=== PATIENT | female | born 1955 | race Caucasian/White ===

== ENCOUNTER → 2018-01-21 | Outpatient (REF) | payer MEDICAID ==
[2018-01-21 12:16] LABS: BASO # 0.1 10^3/uL (0.0-0.2); BASO % 0.5 % (0.0-1.0); EOS # 0.4 10^3/uL (0.0-0.50); EOS % 3.4 % (0.0-3.0); HEMATOCRIT 41.4 % (36.0-47.0); HEMOGLOBIN 13.4 g/dl (12.0-15.5); IMMATURE GRANULOCYTE % 0.4 % (0-3.0); LYMPH # 3.5 10^3/uL (1.5-4.5); LYMPH % 28.7 % (24.0-44.0); MEAN CORPUSCULAR HEMOGLOBIN 29.7 pg (27.0-33.0); MEAN CORPUSCULAR HGB CONC 32.4 g/dl (32.0-36.5); MEAN CORPUSCULAR VOLUME 91.8 fl (80.0-96.0); MONO % 7.8 % (0.0-5.0); NEUTROPHILS # 7.3 10^3/uL (1.8-7.7); NEUTROPHILS % 59.2 % (36.0-66.0); PLATELET COUNT, AUTOMATED 274 10^3/uL (150-450); RED BLOOD COUNT 4.51 10^6/uL (4.00-5.40); RED CELL DISTRIBUTION WIDTH 15.1 % (11.5-14.5); WHITE BLOOD COUNT 12.2 10^3/uL (4.0-10.0)
[2018-01-21 12:56] LABS: ALBUMIN 3.6 GM/DL (3.2-5.2); ALBUMIN/GLOBULIN RATIO 0.95 (1.00-1.93); ALKALINE PHOSPHATASE 73 U/L (45-117); ALT/SGPT 25 U/L (12-78); ANION GAP 5 MEQ/L (8-16); AST/SGOT 18 U/L (7-37); BILIRUBIN,TOTAL 0.6 MG/DL (0.2-1.0); BLOOD UREA NITROGEN 15 MG/DL (7-18); C REACTIVE PROTEIN QUANTITATIV 1.41 MG/DL (0.00-0.30); CALCIUM LEVEL 9.1 MG/DL (8.8-10.2); CARBON DIOXIDE LEVEL 29 MEQ/L (21-32); CHLORIDE LEVEL 107 MEQ/L (98-107); CHOLESTEROL LEVEL 160 MG/DL (<200); CHOLESTEROL RISK RATIO 2.909 (<5); CREATININE FOR GFR 0.85 MG/DL (0.55-1.30); FREE T4 1.33 NG/DL (0.76-1.46); GLOMERULAR FILTRATION RATE > 60.0 (>45); GLUCOSE, FASTING 94 MG/DL (70-100); HDL CHOLESTEROL 55 MG/DL (>40); LDL CHOLESTEROL 77.6 MG/DL (<100); NON-HDL-C 105 MG/DL; POTASSIUM SERUM 4.5 MEQ/L (3.5-5.1); SODIUM LEVEL 141 MEQ/L (136-145); TOTAL PROTEIN 7.4 GM/DL (6.4-8.2); TRIGLYCERIDES LEVEL 137 MG/DL (<150); URIC ACID 7.7 MG/DL (2.6-6.0)
== END ==
LOC: M SFHCPLAZ 10:30
DX: I10 Essential (primary) hypertension (principal); E03.9 Hypothyroidism, unspecified; Z13.220 Encounter for screening for lipoid disorders; M1A.27 Drug-induced chronic gout, ankle and foot

== ENCOUNTER → 2018-02-09 | Outpatient (CLI) | payer OTHER | LOC: M SLEEP HO 10:50 | DX: G47.30 Sleep apnea, unspecified (principal) | CPT/HCPCS: G0399 ==

== ENCOUNTER → 2018-03-11 | Outpatient (CLI) | payer OTHER | LOC: M SMT 10:01 | DX: M17.31 Unilateral post-traumatic osteoarthritis, right knee (principal) | CPT/HCPCS: 73564 ==

== ENCOUNTER 2018-03-18 18:34 | Emergency (ER) | payer OTHER ==
[2018-03-18] MEDS: METHOCARBAMOL 500 MG TAB PO (20:07)
== END 2018-03-18 20:27 | disposition home or self-care (01) ==
LOC: M ED 18:34
DX: S16.1XXA Strain of muscle, fascia and tendon at neck level, initial encounter (principal); M62.830 Muscle spasm of back; M17.11 Unilateral primary osteoarthritis, right knee; X50.1XXA Overexertion from prolonged static or awkward postures, initial encounter; Y92.098 Other place in other non-institutional residence as the place of occurrence of the external cause; I10 Essential (primary) hypertension; Z88.1 Allergy status to other antibiotic agents; Z88.8 Allergy status to other drugs, medicaments and biological substances; Z79.899 Other long term (current) drug therapy
CPT/HCPCS: 99284

== ENCOUNTER → 2018-03-24 | Outpatient (REF) | LOC: M SMT 14:27 | DX: Z00.00 Encounter for general adult medical examination without abnormal findings (principal) ==

== ENCOUNTER 2018-06-23 15:53 | Emergency (ER) | payer OTHER ==
[2018-06-23 16:48] LABS: VENOUS BASE EXCESS 3.5 (-2.0-2.0); VENOUS HCO3 28.7 MEQ/L (23.0-27.0); VENOUS O2 SATURATION 90.1 % (60.0-80.0); VENOUS PARTIAL PRESSURE CO2 45.7 mmHg (38.0-50.0); VENOUS PH 7.416 UNITS (7.330-7.430); VENOUS STANDARD HCO3 27.4 MEQ/L; VENOUS TOTAL CO2 30.1 MEQ/L (24.0-28.0)
[2018-06-23 16:51] LABS: BASO # 0.1 10^3/uL (0.0-0.2); BASO % 0.5 % (0.0-1.0); EOS # 0.3 10^3/uL (0.0-0.50); EOS % 2.6 % (0.0-3.0); HEMATOCRIT 40.7 % (36.0-47.0); HEMOGLOBIN 13.5 g/dl (12.0-15.5); IMMATURE GRANULOCYTE % 0.7 % (0-3.0); LYMPH # 3.5 10^3/uL (1.5-4.5); LYMPH % 28.1 % (24.0-44.0); MEAN CORPUSCULAR HEMOGLOBIN 30.4 pg (27.0-33.0); MEAN CORPUSCULAR HGB CONC 33.2 g/dl (32.0-36.5); MEAN CORPUSCULAR VOLUME 91.7 fl (80.0-96.0); NEUTROPHILS # 7.5 10^3/uL (1.8-7.7); NEUTROPHILS % 60.1 % (36.0-66.0); PLATELET COUNT, AUTOMATED 331 10^3/uL (150-450); RED BLOOD COUNT 4.44 10^6/uL (4.00-5.40); RED CELL DISTRIBUTION WIDTH 14.1 % (11.5-14.5); WHITE BLOOD COUNT 12.5 10^3/uL (4.0-10.0)
[2018-06-23 17:01] LABS: INR 0.95; PROTHROMBIN TIME 12.8 SECONDS (12.1-14.4)
[2018-06-23 17:13] LABS: LACTIC ACID SEPSIS PROTOCOL 1.7 MMOL/L (0.4-2.0)
[2018-06-23 17:21] LABS: ALBUMIN 3.6 GM/DL (3.2-5.2); ALBUMIN/GLOBULIN RATIO 1.03 (1.00-1.93); ALKALINE PHOSPHATASE 72 U/L (45-117); ALT/SGPT 25 U/L (12-78); ANION GAP 8 MEQ/L (8-16); AST/SGOT 17 U/L (7-37); BILIRUBIN,DIRECT 0.1 MG/DL (0.0-0.2); BILIRUBIN,TOTAL 0.5 MG/DL (0.2-1.0); BLOOD UREA NITROGEN 13 MG/DL (7-18); CALCIUM LEVEL 9.2 MG/DL (8.8-10.2); CARBON DIOXIDE LEVEL 30 MEQ/L (21-32); CHLORIDE LEVEL 101 MEQ/L (98-107); CK-MB VALUE MASS < 1.0 NG/ML (<3.6); CPK CREATINE PHOSPHOKINASE 35 U/L (26-192); CREATININE FOR GFR 1.07 MG/DL (0.55-1.30); GLOMERULAR FILTRATION RATE 55.3 (>45); GLUCOSE, FASTING 112 MG/DL (70-100); LIPASE 128 U/L (73-393); MB/CK RELATIVE INDEX 2.86 (< OR =4); NT-PRO BNP 32 PG/ML (<125); POTASSIUM SERUM 3.3 MEQ/L (3.5-5.1); SODIUM LEVEL 139 MEQ/L (136-145); TOTAL PROTEIN 7.1 GM/DL (6.4-8.2); TROPONIN I < 0.02 NG/ML (< 0.10)
[2018-06-23] MEDS ORDERED: ISOVUE-370 76% 100ML VIAL (Q9967) As Ordered (17:38)
[2018-06-23] MEDS: OMEPRAZOLE 20 MG CAP PO (18:38)
== END 2018-06-23 19:33 | disposition home or self-care (01) ==
LOC: M ED 15:53
DX: R60.0 Localized edema (principal); R94.31 Abnormal electrocardiogram [ECG] [EKG]; I10 Essential (primary) hypertension; J45.909 Unspecified asthma, uncomplicated; K21.9 Gastro-esophageal reflux disease without esophagitis; E07.9 Disorder of thyroid, unspecified; Z88.1 Allergy status to other antibiotic agents; Z88.8 Allergy status to other drugs, medicaments and biological substances
CPT/HCPCS: Q9967

== ENCOUNTER → 2018-07-12 | Outpatient (CLI) | payer OTHER | LOC: M LRY 12:27 | DX: J45.21 Mild intermittent asthma with (acute) exacerbation (principal) | CPT/HCPCS: 71046 ==

== ENCOUNTER 2018-07-20 21:00 | Emergency (ER) | payer OTHER ==
[2018-07-20] MEDS: IPRATROPIUM 0.5MG/ALBUTEROL 2.5MG INH SOL UD 3ML (DUONEB)(J7620) NEB (21:57)
[2018-07-20 22:09] LABS: BASO # 0.1 10^3/uL (0.0-0.2); BASO % 0.7 % (0.0-1.0); EOS # 0.6 10^3/uL (0.0-0.50); EOS % 4.1 % (0.0-3.0); HEMOGLOBIN 13.7 g/dl (12.0-15.5); IMMATURE GRANULOCYTE % 0.8 % (0-3.0); LYMPH # 4.4 10^3/uL (1.5-4.5); LYMPH % 29.8 % (24.0-44.0); MEAN CORPUSCULAR HEMOGLOBIN 30.6 pg (27.0-33.0); MEAN CORPUSCULAR HGB CONC 33.4 g/dl (32.0-36.5); MEAN CORPUSCULAR VOLUME 91.7 fl (80.0-96.0); MONO # 1.1 10^3/uL (0.0-0.8); MONO % 7.7 % (0.0-5.0); NEUTROPHILS # 8.4 10^3/uL (1.8-7.7); NEUTROPHILS % 56.9 % (36.0-66.0); PLATELET COUNT, AUTOMATED 293 10^3/uL (150-450); RED BLOOD COUNT 4.47 10^6/uL (4.00-5.40); RED CELL DISTRIBUTION WIDTH 14.2 % (11.5-14.5); WHITE BLOOD COUNT 14.7 10^3/uL (4.0-10.0)
[2018-07-20 22:24] LABS: ANION GAP 7 MEQ/L (8-16); BLOOD UREA NITROGEN 15 MG/DL (7-18); CALCIUM LEVEL 8.4 MG/DL (8.8-10.2); CARBON DIOXIDE LEVEL 31 MEQ/L (21-32); CHLORIDE LEVEL 104 MEQ/L (98-107); CREATININE FOR GFR 1.13 MG/DL (0.55-1.30); GLOMERULAR FILTRATION RATE 51.9 (>45); GLUCOSE, FASTING 132 MG/DL (70-100); POTASSIUM SERUM 3.7 MEQ/L (3.5-5.1); SODIUM LEVEL 142 MEQ/L (136-145)
[2018-07-20] MEDS: MOXIFLOXACIN 400 MG TAB PO (22:42)
[2018-07-20] MEDS: predniSONE 20 MG TAB PO (22:44)
== END 2018-07-20 23:32 | disposition home or self-care (01) ==
LOC: M ED 21:00
DX: J40 Bronchitis, not specified as acute or chronic (principal); J45.909 Unspecified asthma, uncomplicated; I10 Essential (primary) hypertension; F17.210 Nicotine dependence, cigarettes, uncomplicated
CPT/HCPCS: 71046

== ENCOUNTER 2018-12-03 09:11 | Day surgery (SDC) | payer OTHER ==
[~2018-12-03] VITALS: Ht 165.1 cm; Wt 138.3 kg
[~2018-12-03 09:11] MED LIST: ALLO100T; AMLO10TA5; AUGM875T28 PO; AVEL1TAB3 PO; CHLO125TA; DOXY100C37 PO; FAMO40TA3; IPRATROPIUM/; LEVO88TA3; LOSA50TA88; MAPA500T2; PROAAER10; ROBA500T PO; SERT-138; TRAM50TA2; VENTAER
[2018-12-03] MEDS ORDERED: PROPOFOL 200 MG/20 ML VIAL As Ordered ONE ×2 (09:55→11:46)
[2018-12-03] MEDS ORDERED: NS 1,000 ML IV ONE (10:00)
[2018-12-03] MEDS ORDERED: LIDOCAINE 2% INJ 100 MG/5 ML SDV (FOR ANES.) As Ordered ONE (10:01)
[2018-12-03] MEDS ORDERED: fentaNYL 100 MCG/2 ML INJECTION (J3010) As Ordered ONE (11:06)
[2018-12-03 12:17] VITALS: BP 146/74
--- NOTE | 2018-12-03 12:40 | ROOR ---
Patient Name: Randee Post Procedure Date: 12/03/2018 11:03 AM Date of : 1955 Age: 63 Room: [facility] Gender: Female Note Status: Finalized Procedure: Upper GI endoscopy Indications: Heartburn Providers: Edward Goel MD Referring MD: Karen PIERRE Requesting Provider: Medicines: Monitored Anesthesia Care Complications: No immediate complications. Procedure: Pre-Anesthesia Assessment: - Prior to the procedure, a History and Physical was performed, and patient medications and allergies were reviewed. The patient is competent. The risks and benefits of the procedure and the sedation options and risks were discussed with the patient. All questions were answered and informed consent was obtained. Patient identification and proposed procedure were verified by the physician, the nurse and the anesthesiologist in the procedure room. Mental Status Examination: alert and oriented. Airway Examination: normal oropharyngeal airway and neck mobility. Respiratory Examination: clear to auscultation. CV Examination: normal. Prophylactic Antibiotics: The patient does not require prophylactic antibiotics. Prior Anticoagulants: The patient has taken no previous anticoagulant or antiplatelet agents. ASA Grade Assessment: III - A patient with severe systemic disease. After reviewing the risks and benefits, the patient was deemed in satisfactory condition to undergo the procedure. The anesthesia plan was to use monitored anesthesia care (MAC). Immediately prior to administration of medications, the patient was re-assessed for adequacy to receive sedatives. The heart rate, respiratory rate, oxygen saturations, blood pressure, adequacy of pulmonary ventilation, and response to care were monitored throughout the procedure. The physical status of the patient was re-assessed after the procedure. The Endoscope was introduced through the mouth, and advanced to the second part of duodenum. The upper GI endoscopy was accomplished without difficulty. The patient tolerated the procedure well. Findings: Mucosal changes including ringed esophagus and longitudinal markings were found in the middle third of the esophagus and in the lower third of the esophagus. Biopsies were obtained from the proximal and distal esophagus with cold forceps for histology of suspected eosinophilic esophagitis. Verification of patient identification for the specimen was done by the physician and nurse using the patient's name, date and medical record number. Estimated blood loss was minimal. The Z-line was regular and was found 40 cm from the incisors. Patchy minimal inflammation characterized by erythema and granularity was found in the gastric body and in the gastric antrum. Biopsies were taken with a cold forceps for Helicobacter pylori testing. The duodenal bulb and second portion of the duodenum were normal. Impression: - Esophageal mucosal changes suspicious for eosinophilic esophagitis. Biopsied. - Z-line regular, 40 cm from the incisors. - Gastritis. Biopsied. - Normal duodenal bulb and second portion of the duodenum. Recommendation: - Patient has a contact number available for emergencies. The signs and symptoms of potential delayed complications were discussed with the patient. Return to normal activities tomorrow. Written discharge instructions were provided to the patient. - Resume previous diet. - Continue present medications. - Await pathology results. - Follow an antireflux regimen. - Based on the biopsy results you will receive a phone call from GI clinic in 2-3 weeks to review the pathology results AND/OR your results will be faxed to your Primary care physician. - Return to primary care physician. Edward Goel MD Edward Goel MD 12/03/2018 12:39:47 PM Electronically signed by Edward Goel MD Number of Addenda: 0 Note Initiated On: 12/03/2018 11:03 AM Estimated Blood Loss: Estimated blood loss was minimal.
--- NOTE | 2018-12-03 12:44 | ROOR ---
Patient Name: Randee Post Procedure Date: 12/03/2018 11:03 AM Date of : 1955 Age: 63 Room: [facility] Gender: Female Note Status: Finalized Procedure: Colonoscopy Indications: Screening for colorectal malignant neoplasm Providers: Edward Goel MD Referring MD: Karen PIERRE Requesting Provider: Medicines: Monitored Anesthesia Care Complications: No immediate complications. Procedure: Pre-Anesthesia Assessment: - Prior to the procedure, a History and Physical was performed, and patient medications and allergies were reviewed. The patient is competent. The risks and benefits of the procedure and the sedation options and risks were discussed with the patient. All questions were answered and informed consent was obtained. Patient identification and proposed procedure were verified by the physician, the nurse and the anesthesiologist in the procedure room. Mental Status Examination: alert and oriented. Airway Examination: normal oropharyngeal airway and neck mobility. Respiratory Examination: clear to auscultation. CV Examination: normal. Prophylactic Antibiotics: The patient does not require prophylactic antibiotics. Prior Anticoagulants: The patient has taken no previous anticoagulant or antiplatelet agents. ASA Grade Assessment: III - A patient with severe systemic disease. After reviewing the risks and benefits, the patient was deemed in satisfactory condition to undergo the procedure. The anesthesia plan was to use monitored anesthesia care (MAC). Immediately prior to administration of medications, the patient was re-assessed for adequacy to receive sedatives. The heart rate, respiratory rate, oxygen saturations, blood pressure, adequacy of pulmonary ventilation, and response to care were monitored throughout the procedure. The physical status of the patient was re-assessed after the procedure. The Colonoscope was introduced through the anus and advanced to the terminal ileum, with identification of the appendiceal orifice and IC valve. The colonoscopy was performed without difficulty. The patient tolerated the procedure well. The quality of the bowel preparation was good. The terminal ileum, ileocecal valve, appendiceal orifice, and rectum were photographed. Scope insertion time was 3 minutes. Scope withdrawal time was 9 minutes. The total duration of the procedure was 12 minutes. Findings: The perianal and digital rectal examinations were normal. The terminal ileum appeared normal. A 10 mm polyp was found in the ascending colon. The polyp was sessile. The polyp was removed with a cold snare. Resection and retrieval were complete. To close a defect after polypectomy, one hemostatic clip was successfully placed. There was no bleeding at the end of the procedure. Multiple small and large-mouthed diverticula were found in the sigmoid colon. There was no evidence of diverticular bleeding. Non-bleeding external and internal hemorrhoids were found during retroflexion. The hemorrhoids were medium-sized. Impression: - The examined portion of the ileum was normal. - One 10 mm polyp in the ascending colon, removed with a cold snare. Resected and retrieved. Clip was placed. - Moderate diverticulosis in the sigmoid colon. There was no evidence of diverticular bleeding. - Non-bleeding external and internal hemorrhoids. Recommendation: - Patient has a contact number available for emergencies. The signs and symptoms of potential delayed complications were discussed with the patient. Return to normal activities tomorrow. Written discharge instructions were provided to the patient. - High fiber diet. - Continue present medications. - Colace capsule(s) orally 100 mg BID. - Preparation H suppository: Insert rectally daily for 5 days. - Await pathology results. - Repeat colonoscopy in 3 - 5 years for surveillance based on pathology results. - Based on the biopsy results you will receive a phone call from GI clinic in 2-3 weeks to review the pathology results AND/OR your results will be faxed to your Primary care physician. - Return to primary care physician. Edward Goel MD Edward Goel MD 12/03/2018 12:44:32 PM Electronically signed by Edward Goel MD Number of Addenda: 0 Note Initiated On: 12/03/2018 11:03 AM Estimated Blood Loss: Estimated blood loss was minimal.
== END 2018-12-03 12:52 | disposition home or self-care (01) ==
LOC: M OPP 09:11
PROVIDERS: ATTEND Internal Medicine Gastroenterology
DX: D12.2 Benign neoplasm of ascending colon (principal); K63.5 Polyp of colon; K57.30 Diverticulosis of large intestine without perforation or abscess without bleeding; K64.8 Other hemorrhoids; R12 Heartburn; K29.70 Gastritis, unspecified, without bleeding; K22.9 Disease of esophagus, unspecified; Z12.11 Encounter for screening for malignant neoplasm of colon
CPT/HCPCS: 43239; 45385; 88305; J3010

== ENCOUNTER → 2019-03-14 | Outpatient (REF) | payer OTHER | LOC: M LAB REF 13:09 | DX: E87.6 Hypokalemia (principal) ==

== ENCOUNTER 2019-04-15 12:39 | Emergency (ER) | payer OTHER ==
[~2019-04-15] VITALS: Ht 165.1 cm; Wt 116.8 kg
--- NOTE | 2019-04-15 14:07 | REP ---
Clinical: Altered mental status . Comparison: None . Findings: The ventricles, sulci, and cisterns are normal in position and appearance. Ang-white differentiation is maintained. No acute intracranial hemorrhage, mass/mass effect, pathology or trauma/injury. No evidence for acute infarction. No extra-axial fluid collection. Calvarium is intact. Paranasal sinuses and mastoid air cells are clear. Impression: Normal noncontrast head CT. No evidence for acute intracranial pathology or trauma/injury. Electronically Signed by Bean Grubbs MD 04/15/2019 01:58 P
[2019-04-15 14:33] LABS: BASO # 0.1 10^3/uL (0.0-0.2); BASO % 0.8 % (0.0-1.0); EOS # 0.3 10^3/uL (0.0-0.5); HEMATOCRIT 37.6 % (36.0-47.0); HEMOGLOBIN 12.4 g/dl (12.0-15.5); LYMPH # 3.3 10^3/uL (1.5-5.0); LYMPH % 38.8 % (24.0-44.0); MONO # 0.9 10^3/uL (0.0-0.8); NEUTROPHILS % 47.3 % (36.0-66.0); PLATELET COUNT, AUTOMATED 252 10^3/uL (150-450); WHITE BLOOD COUNT 8.5 10^3/uL (4.0-10.0)
[2019-04-15 15:28] LABS: ALBUMIN 3.5 GM/DL (3.2-5.2); ALT/SGPT 43 U/L (12-78); BILIRUBIN,DIRECT 0.4 MG/DL (0.0-0.2); BILIRUBIN,TOTAL 0.9 MG/DL (0.2-1.0); BLOOD UREA NITROGEN 17 MG/DL (7-18); CALCIUM LEVEL 9.5 MG/DL (8.8-10.2); CARBON DIOXIDE LEVEL 29 MEQ/L (21-32); CHLORIDE LEVEL 103 MEQ/L (98-107); CK-MB VALUE MASS < 1.0 NG/ML (<3.6); CPK CREATINE PHOSPHOKINASE 34 U/L (26-192); CREATININE FOR GFR 0.74 MG/DL (0.55-1.30); GLOMERULAR FILTRATION RATE > 60.0 (>45); GLUCOSE, FASTING 85 MG/DL (70-100); MAGNESIUM LEVEL 2.1 MG/DL (1.8-2.4); MB/CK RELATIVE INDEX 2.94 (< OR =4); POTASSIUM SERUM 3.8 MEQ/L (3.5-5.1); SODIUM LEVEL 140 MEQ/L (136-145); TOTAL PROTEIN 7.5 GM/DL (6.4-8.2); TROPONIN I < 0.02 NG/ML (< 0.10)
--- NOTE | 2019-04-15 17:07 | REP ---
Clinical: Intermittent altered mental status and right-sided headaches. Technique: Standard noncontrast MRI of the brain sequencing. Findings: The ventricles, sulci, and cisterns are symmetric and normal. Ang-white differentiation is maintained. No evidence for hemorrhage, mass or mass effect. No abnormal signal intensity foci are appreciated. No extra-axial fluid collection. Diffusion weighted sequence appears normal and without evidence for acute infarction. Impression: Age-appropriate noncontrast MRI of the brain. No evidence for acute pathology. Electronically Signed by Bean Grubbs MD 04/15/2019 04:59 P
--- NOTE | 2019-04-15 17:08 | REP ---
Clinical: Intermittent altered mental status and right-sided headaches Comparison: None Technique: Axial 3-D [id number] noncontrast source images with 3-D multiplanar re-formations. Findings: Vasculature to the bilateral hemispheres appears symmetric and normal without areas of attenuation to suggest occlusion or stenosis. No evidence for arteriovenous malformation or aneurysm. No obvious abnormality. Impression: Normal MRA of the brain. Electronically Signed by Bean Grubbs MD 04/15/2019 05:00 P
[2019-04-15 18:52] VITALS: BP 120/60
--- NOTE | 2019-04-15 19:32 | ECGEPIP ---
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
== END 2019-04-15 19:10 | disposition home or self-care (01) ==
LOC: M ED 12:39
DX: G44.89 Other headache syndrome (principal); R53.1 Weakness; J45.909 Unspecified asthma, uncomplicated; I10 Essential (primary) hypertension; Z98.890 Other specified postprocedural states; Z98.84 Bariatric surgery status; Z88.8 Allergy status to other drugs, medicaments and biological substances; Z88.1 Allergy status to other antibiotic agents

== ENCOUNTER → 2019-05-12 | Outpatient (REF) | payer OTHER ==
[2019-05-12 15:36] LABS: CPK CREATINE PHOSPHOKINASE 25 U/L (26-192); RHEUMATOID FACTOR QUANT < 10.0 IU/ML (<15.0); TOTAL PROTEIN 7.7 GM/DL (6.4-8.2)
[2019-05-12 15:37] LABS: VITAMIN B12 LEVEL > 2000 PG/ML (247-911)
[2019-05-12 15:38] LABS: FOLATE 15.2 NG/ML (>5.4)
[2019-05-17 11:01] LABS: ACETYLCHOLINE RCPTOR BINDING A < 0.03 nmol/L (0.00-0.24); ANTI DOUBLE STRAND-DNA AB 3 IU/mL (0-9); ANTINUCLEAR ANTIBODIES DIRECT Positive (Negative); CERULOPLASMIN 28.4 mg/dL (19.0-39.0); COPPER PLASMA 125 ug/dL (72-166); LEAD BLOOD ADULT 3 ug/dL (0-4); MERCURY LEVEL 1.1 ug/L (0.0-14.9); SJOGREN'S ANTI SS-A <0.2 AI (0.0-0.9); SJOGREN'S ANTI SS-B <0.2 AI (0.0-0.9); SMITH ANTIBODIES <0.2 AI (0.0-0.9); VITAMIN B1 LEVEL WHOLE BLOOD 123.3 nmol/L (66.5-200.0); VITAMIN B6,PYRIDOXAL PHOSPHATE 14.5 ug/L (2.0-32.8); VITAMIN E(ALPHA TOCOPHEROL) 11.1 mg/L (9.0-29.0); VITAMIN E(GAMMA TOCOPHEROL) 2.4 mg/L (0.5-4.9)
[2019-05-17 12:04] LABS: ALBUMIN 4.24 GM/DL (3.29-5.55); ALPHA-1-GLOBULIN % 5.1 % (2.9-4.9); ALPHA-1-GLOBULINS 0.39 GM/DL (0.17-0.41); ALPHA-2-GLOBULINS 0.85 GM/DL (0.42-0.99); ALPHA-2-GLOBULINS % 11.1 % (7.1-11.8); BETA-1-GLOBULINS 0.45 GM/DL (0.28-0.60); BETA-1-GLOBULINS % 5.9 % (4.7-7.2); BETA-2-GLOBULINS 0.47 GM/DL (0.19-0.55); BETA-2-GLOBULINS % 6.1 % (3.2-6.5); GAMMA GLOBULIN % 16.8 % (11.1-18.8); GAMMA GLOBULINS 1.29 GM/DL (0.65-1.58)
== END ==
LOC: M LABNEURO 11:12
PROVIDERS: ATTEND Psychiatry & Neurology Neurology
DX: G62.9 Polyneuropathy, unspecified (principal)

== ENCOUNTER → 2019-05-16 | Outpatient (REF) | payer OTHER ==
[2019-05-16 20:47] LABS: FREE T4 1.35 NG/DL (0.76-1.46); THYROID STIMULATING HORMONE 1.25 uIU/ML (0.358-3.740); URIC ACID 9.3 MG/DL (2.6-6.0)
== END ==
LOC: M SFHCLERA 17:07
PROVIDERS: ATTEND Nurse Practitioner Family
DX: E03.9 Hypothyroidism, unspecified (principal); M1A.27 Drug-induced chronic gout, ankle and foot

== ENCOUNTER → 2019-07-01 | Outpatient (CLI) | payer OTHER ==
[2019-07-01 17:01] LABS: CALCIUM LEVEL 9.7 MG/DL (8.8-10.2); CREATININE FOR GFR 1.35 MG/DL (0.55-1.30); GLOMERULAR FILTRATION RATE 42.2 (>45); PHOSPHORUS LEVEL 3.1 MG/DL (2.5-4.9); POTASSIUM SERUM 3.2 MEQ/L (3.5-5.1)
== END ==
LOC: M LRY 11:30
PROVIDERS: ATTEND Internal Medicine Cardiovascular Disease
DX: I11.9 Hypertensive heart disease without heart failure (principal)

== ENCOUNTER → 2019-07-11 | Outpatient (REF) | payer OTHER ==
[2019-07-11 12:27] LABS: ALBUMIN 3.7 GM/DL (3.2-5.2); CALCIUM LEVEL 9.5 MG/DL (8.8-10.2); CREATININE FOR GFR 1.19 MG/DL (0.55-1.30); GLOMERULAR FILTRATION RATE 48.8 (>45); PHOSPHORUS LEVEL 2.7 MG/DL (2.5-4.9); POTASSIUM SERUM 3.4 MEQ/L (3.5-5.1)
== END ==
LOC: M LRY 11:45
PROVIDERS: ATTEND Internal Medicine Cardiovascular Disease
DX: N19 Unspecified kidney failure (principal); E87.6 Hypokalemia

== ENCOUNTER → 2019-10-01 | Outpatient (REF) | payer OTHER | LOC: M SFHCLERA 10:14 | PROVIDERS: ATTEND Nurse Practitioner Family | DX: R53.81 Other malaise (principal) ==

== ENCOUNTER 2019-12-21 13:31 | Emergency (ER) | payer MEDICAID, OTHER ==
[~2019-12-21] VITALS: Ht 165.1 cm; Wt 83.2 kg
[2019-12-21] MEDS ORDERED: OMEP-221 (13:44)
[2019-12-21 14:14] LABS: BASO # 0.1 10^3/uL (0.0-0.2); BASO % 0.9 % (0.0-1.0); EOS # 0.3 10^3/uL (0.0-0.5); EOS % 3.1 % (0.0-3.0); HEMOGLOBIN 11.7 g/dl (12.0-15.5); LYMPH # 3.6 10^3/uL (1.5-5.0); LYMPH % 33.4 % (24.0-44.0); MEAN CORPUSCULAR HEMOGLOBIN 32.2 pg (27.0-33.0); MEAN CORPUSCULAR HGB CONC 33.4 g/dl (32.0-36.5); MEAN CORPUSCULAR VOLUME 96.4 fl (80.0-96.0); MONO # 0.9 10^3/uL (0.0-0.8); MONO % 8.3 % (0.0-5.0); NEUTROPHILS # 5.8 10^3/uL (1.5-8.5); PLATELET COUNT, AUTOMATED 236 10^3/uL (150-450); RED BLOOD COUNT 3.63 10^6/uL (4.00-5.40); WHITE BLOOD COUNT 10.7 10^3/uL (4.0-10.0)
[2019-12-21 14:26] LABS: INR 1.04; PROTHROMBIN TIME 13.3 SECONDS (11.8-14.0)
[2019-12-21 14:27] LABS: PARTIAL THROMBOPLASTIN TIME 33.2 SECONDS (25.0-38.4)
--- NOTE | 2019-12-21 14:34 | REP ---
Duplex extremity venous ultrasound: Left lower extremity. History: Left leg injury. Rule out DVT. Findings: The deep veins are anechoic and fully compressible from the groin to the popliteal fossa in the left lower extremity. Color flow imaging is homogeneous. Spectral Doppler interrogation demonstrates intact respiratory variation in flow and normal manual augmentation of flow. There is no evidence of deep vein thrombosis. Impression: Negative left lower extremity duplex venous ultrasound. No evidence of deep vein thrombosis. Electronically Signed by Carlos Ricardo MD 12/21/2019 02:26 P
[2019-12-21 14:38] LABS: BLOOD UREA NITROGEN 14 MG/DL (7-18); CALCIUM LEVEL 8.7 MG/DL (8.8-10.2); CARBON DIOXIDE LEVEL 25 MEQ/L (21-32); CHLORIDE LEVEL 109 MEQ/L (98-107); GLOMERULAR FILTRATION RATE > 60.0 (>45); GLUCOSE, FASTING 87 MG/DL (70-100); POTASSIUM SERUM 3.9 MEQ/L (3.5-5.1); SODIUM LEVEL 142 MEQ/L (136-145)
[2019-12-21] MEDS ORDERED: KEFL500C17 PO (14:50)
--- NOTE | 2019-12-21 14:51 | REP ---
LEFT FOOT SERIES: FOUR VIEWS. HISTORY: Dorsal trauma. FINDINGS: There is Achilles and plantar calcaneal spurring. Overall mineralization pattern is mildly decreased. There is a mild hallux valgus deformity. No fracture or subluxation is seen. IMPRESSION: No fracture noted. Heel spurring. Mild hallux valgus. Mild diffuse osteopenia. Electronically Signed by Carlos Ricardo MD 12/21/2019 07:34 P
[2019-12-21 14:57] VITALS: BP 117/59
[2019-12-21] MEDS ORDERED: CEPHALEXIN 500 MG CAP PO ONE (15:00)
[2019-12-21 15:40] LABS: URIC ACID 5.1 MG/DL (2.6-6.0)
== END 2019-12-21 15:06 | disposition home or self-care (01) ==
LOC: M ED 13:31
DX: L03.116 Cellulitis of left lower limb (principal); J45.909 Unspecified asthma, uncomplicated; M32.9 Systemic lupus erythematosus, unspecified; F33.9 Major depressive disorder, recurrent, unspecified; F41.9 Anxiety disorder, unspecified; Z98.84 Bariatric surgery status; Z79.899 Other long term (current) drug therapy; Z88.1 Allergy status to other antibiotic agents; Z88.8 Allergy status to other drugs, medicaments and biological substances

== ENCOUNTER 2020-01-06 19:36 | Emergency (ER) | payer MEDICAID, OTHER ==
[~2020-01-06] VITALS: Ht 165.1 cm; Wt 83.6 kg
[~2020-01-06 19:36] MED LIST changes: +KEFL500C17 PO; +OMEP-221
[2020-01-06 20:45] LABS: BASO # 0.1 10^3/uL (0.0-0.2); BASO % 0.9 % (0.0-1.0); EOS # 0.3 10^3/uL (0.0-0.5); EOS % 2.8 % (0.0-3.0); HEMATOCRIT 34.3 % (36.0-47.0); HEMOGLOBIN 11.2 g/dl (12.0-15.5); LYMPH # 4.3 10^3/uL (1.5-5.0); LYMPH % 44.7 % (24.0-44.0); MEAN CORPUSCULAR HEMOGLOBIN 31.8 pg (27.0-33.0); MEAN CORPUSCULAR HGB CONC 32.7 g/dl (32.0-36.5); MEAN CORPUSCULAR VOLUME 97.4 fl (80.0-96.0); MONO # 0.7 10^3/uL (0.0-0.8); NEUTROPHILS # 4.3 10^3/uL (1.5-8.5); NEUTROPHILS % 44.3 % (36.0-66.0); PLATELET COUNT, AUTOMATED 252 10^3/uL (150-450); RED BLOOD COUNT 3.52 10^6/uL (4.00-5.40); WHITE BLOOD COUNT 9.6 10^3/uL (4.0-10.0)
[2020-01-06] MEDS: LIDOCAINE 4% CREAM 5GM (LMX4) TOP ONE (20:53)
--- NOTE | 2020-01-06 21:06 | REPVR ---
PROCEDURE INFORMATION: Exam: CT Left Lower Extremity Without Contrast, Foot Exam date and time: 01/06/2020 8:36 PM Age: 64 years old Clinical indication: Pain; Foot; Left; Additional info: Pain base foot along fifth mt, blunt trauma 3 wks ago TECHNIQUE: Imaging protocol: CT of the Left lower extremity without contrast was performed. Exam focused on the foot. Radiation optimization: All CT scans at this facility use at least one of these dose optimization techniques: automated exposure control; mA and/or kV adjustment per patient size (includes targeted exams where dose is matched to clinical indication); or iterative reconstruction. COMPARISON: CR Foot, complete 12/21/2019 2:20 PM FINDINGS: No concerning asymmetric focal soft tissue swelling. No soft tissue defect or foreign body. Normal osseous alignment involving the ankle and bones of the foot. Well-defined plantar calcaneal enthesophyte is present. Subchondral cystic change at the articulation between the calcaneus, navicular and cuboid, with subtle sclerosis at the calcaneocuboid articulation. No osseous bridging. No acute fracture. Lisfranc joint shows normal alignment. Forefoot bones show no fracture deformity. Great toe sesamoid and great toe MTP joint space narrowing and osteophyte formation is present IMPRESSION: No acute fracture or osseous malalignment. 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 Electronically signed by: Ross Womack On 01/06/2020 21:05:09 PM
[2020-01-06 21:10] LABS: ERYTHROCYTE SEDIMENTATION RATE 35 mm/hr (0-30)
[2020-01-06 21:54] VITALS: BP 146/68
--- NOTE | 2020-01-09 12:20 | ED PDOC ---
Post-Departure Follow-Up sahil and adonay marie faxed formal report of ct foot for fu brookeg Sherry Maria MD Jan 09, 2020 12:19
== END 2020-01-06 21:56 | disposition home or self-care (01) ==
LOC: M ED 19:36
DX: M79.672 Pain in left foot (principal); I10 Essential (primary) hypertension; J45.909 Unspecified asthma, uncomplicated; E03.9 Hypothyroidism, unspecified; F41.9 Anxiety disorder, unspecified; F32.9 Major depressive disorder, single episode, unspecified; Z98.84 Bariatric surgery status; Z88.1 Allergy status to other antibiotic agents; Z88.8 Allergy status to other drugs, medicaments and biological substances; Z79.899 Other long term (current) drug therapy

== ENCOUNTER → 2020-01-13 | Outpatient (CLI) | payer OTHER ==
[2020-01-13 10:56] LABS: ALBUMIN 3.5 GM/DL (3.2-5.2); BILIRUBIN,DIRECT 0.2 MG/DL (0.0-0.2); BILIRUBIN,TOTAL 0.7 MG/DL (0.2-1.0); FREE T4 1.12 NG/DL (0.76-1.46); THYROID STIMULATING HORMONE 3.24 uIU/ML (0.358-3.740); TOTAL PROTEIN 6.5 GM/DL (6.4-8.2)
== END ==
LOC: M LAB 09:23
PROVIDERS: ATTEND Physician Assistant Medical
DX: R10.13 Epigastric pain (principal); K59.04 Chronic idiopathic constipation

== ENCOUNTER → 2020-02-14 | Outpatient (CLI) | payer OTHER, MEDICAID ==
[~2020-02-14] MED LIST changes: -AMLO10TA5; +AMLO1TAB25; +BIOT1CAP2 PO; +D31000TA2 PO; -FAMO40TA3; +FAMO40TA3 PO; +IPRA0.00 INH; -LEVO88TA3; +LEVO88TA3 PO; -MAPA500T2; +MAPA500T2 PO; +MULTCAP PO; -OMEP-221; +OMEP-221 PO; +PROAAER10 INH; -SERT-138; +SERT-138 PO; +VITATAB73 PO
== END ==
LOC: M LABSMTC 09:22
PROVIDERS: ATTEND Anesthesiology
DX: Z01.818 Encounter for other preprocedural examination (principal); Z11.59 Encounter for screening for other viral diseases
CPT/HCPCS: C9803; U0003

== ENCOUNTER → 2020-02-16 | Outpatient (REF) | payer OTHER | LOC: M LAB REF 17:56 | PROVIDERS: ATTEND Dermatology | DX: L30.9 Dermatitis, unspecified (principal); L57.8 Other skin changes due to chronic exposure to nonionizing radiation ==

== ENCOUNTER 2020-02-17 11:00 | Day surgery (SDC) | payer OTHER ==
[~2020-02-17] VITALS: Ht 165.1 cm; Wt 78.9 kg
[~2020-02-17 11:00] MED LIST changes: +NS 1,000 ML IV ONE
[2020-02-17] MEDS ORDERED: fentaNYL 100 MCG/2 ML INJECTION (J3010) As Ordered ONE (13:19)
[2020-02-17] MEDS ORDERED: LIDOCAINE 2% 100MG/5ML SDV (FOR ANES.) As Ordered ONE (13:42)
[2020-02-17] MEDS ORDERED: propofoL 200 MG/20 ML VIAL As Ordered ONE (13:42)
[2020-02-17 14:10] VITALS: BP 142/71
--- NOTE | 2020-02-17 14:45 | ROOR ---
Patient Name: Randee Post Procedure Date: 02/17/2020 1:19 PM Date of : 1955 Age: 64 Room: [facility] Gender: Female Note Status: Finalized Procedure: Upper GI endoscopy Indications: Epigastric abdominal pain, Heartburn Providers: Edward Goel MD Referring MD: Karen PIERRE Requesting Provider: Medicines: Monitored Anesthesia Care Complications: No immediate complications. Procedure: Pre-Anesthesia Assessment: - Prior to the procedure, a History and Physical was performed, and patient medications and allergies were reviewed. The patient is competent. The risks and benefits of the procedure and the sedation options and risks were discussed with the patient. All questions were answered and informed consent was obtained. Patient identification and proposed procedure were verified by the physician, the nurse and the anesthesiologist in the procedure room. Mental Status Examination: alert and oriented. Airway Examination: normal oropharyngeal airway and neck mobility. Respiratory Examination: clear to auscultation. CV Examination: normal. Prophylactic Antibiotics: The patient does not require prophylactic antibiotics. Prior Anticoagulants: The patient has taken no previous anticoagulant or antiplatelet agents. ASA Grade Assessment: II - A patient with mild systemic disease. After reviewing the risks and benefits, the patient was deemed in satisfactory condition to undergo the procedure. The anesthesia plan was to use monitored anesthesia care (MAC). Immediately prior to administration of medications, the patient was re-assessed for adequacy to receive sedatives. The heart rate, respiratory rate, oxygen saturations, blood pressure, adequacy of pulmonary ventilation, and response to care were monitored throughout the procedure. The physical status of the patient was re-assessed after the procedure. The Endoscope was introduced through the mouth, and advanced to the afferent and efferent jejunal loops. The upper GI endoscopy was accomplished without difficulty. The patient tolerated the procedure well. Findings: The examined esophagus was normal. The Z-line was regular and was found in the distal esophagus. Evidence of a gastric bypass was found in the stomach. This was characterized by congestion, erythema and an intact staple line. Two biopsies were obtained with cold forceps for histology and Helicobacter pylori testing at the anastomosis, as well as two biopsies in the gastric body. Verification of patient identification for the specimen was done by the physician and nurse using the patient's name, date and medical record number. Estimated blood loss was minimal. The examined jejunum was normal. Impression: - Normal esophagus. - Z-line regular, in the distal esophagus. - A gastric bypass was found, characterized by congestion, erythema and an intact staple line. - Normal examined jejunum. - Biopsies performed at the anastomosis and in the gastric body. Recommendation: - Patient has a contact number available for emergencies. The signs and symptoms of potential delayed complications were discussed with the patient. Return to normal activities tomorrow. Written discharge instructions were provided to the patient. - Post gastric bypass diet (small frequent meals and avoid fatty/ fried foods). - Continue present medications. - Await pathology results. - Follow an antireflux regimen. - Telephone GI clinic for pathology results in 2 weeks. - Return to primary care physician. Edward Goel MD Edward Goel MD 02/17/2020 2:44:51 PM Electronically signed by Edward Goel MD Number of Addenda: 0 Note Initiated On: 02/17/2020 1:19 PM Estimated Blood Loss: Estimated blood loss was minimal.
== END 2020-02-17 17:08 | disposition home or self-care (01) ==
LOC: M OPP 11:00
PROVIDERS: ATTEND Internal Medicine Gastroenterology
DX: R10.13 Epigastric pain (principal); Z98.84 Bariatric surgery status; Z11.59 Encounter for screening for other viral diseases
CPT/HCPCS: 43239; 88305; J3010; U0002

== ENCOUNTER → 2020-02-17 | Outpatient (CLI) | payer OTHER ==
[2020-02-17 11:36] LABS: HEMATOCRIT 37.5 % (36.0-47.0); HEMOGLOBIN 12.1 g/dl (12.0-15.5); MEAN CORPUSCULAR HEMOGLOBIN 31.6 pg (27.0-33.0); MEAN CORPUSCULAR HGB CONC 32.3 g/dl (32.0-36.5); MEAN CORPUSCULAR VOLUME 97.9 fl (80.0-96.0); PLATELET COUNT, AUTOMATED 258 10^3/uL (150-450); RED BLOOD COUNT 3.83 10^6/uL (4.00-5.40); WHITE BLOOD COUNT 9.3 10^3/uL (4.0-10.0)
[2020-02-17 12:02] LABS: HEMOGLOBIN A1c 5.3 %
[2020-02-17 12:04] LABS: ALBUMIN 3.9 GM/DL (3.2-5.2); ALT/SGPT 25 U/L (12-78); BLOOD UREA NITROGEN 26 MG/DL (7-18); CALCIUM LEVEL 9.4 MG/DL (8.8-10.2); CARBON DIOXIDE LEVEL 27 MEQ/L (21-32); CHLORIDE LEVEL 109 MEQ/L (98-107); CHOLESTEROL LEVEL 160 MG/DL (<200); CHOLESTEROL RISK RATIO 2.424 (<5); CREATININE FOR GFR 0.95 MG/DL (0.55-1.30); FERRITIN 389 NG/ML (8-252); GLOMERULAR FILTRATION RATE > 60.0 (>45); GLUCOSE, FASTING 81 MG/DL (70-100); HDL CHOLESTEROL 66 MG/DL (>40); IRON (FE) 108 UG/DL (50-170); LDL CHOLESTEROL 85 MG/DL (<100); NON-HDL-C 94 MG/DL; PERCENT SATURATION 45.6 % (13.2-45.0); POTASSIUM SERUM 4.4 MEQ/L (3.5-5.1); SODIUM LEVEL 141 MEQ/L (136-145); TOTAL 25(OH) VITAMIN D 46.5 NG/ML (30.0-100.0); TOTAL IRON BINDING CAPACITY 237 UG/DL (250-450); TRIGLYCERIDES LEVEL 47 MG/DL (<150); VITAMIN B12 LEVEL 982 PG/ML (247-911)
== END ==
LOC: M LAB 10:23
PROVIDERS: ATTEND Surgery
DX: K91.2 Postsurgical malabsorption, not elsewhere classified (principal)

== ENCOUNTER → 2020-07-10 | Outpatient (CLI) | payer OTHER, MEDICAID ==
[~2020-07-10] MED LIST changes: -NS 1,000 ML IV ONE
[2020-07-10 18:00] LABS: BASO # 0.1 10^3/uL (0.0-0.2); BASO % 0.9 % (0.0-1.0); EOS # 0.2 10^3/uL (0.0-0.5); EOS % 2.4 % (0.0-3.0); HEMATOCRIT 34.6 % (36.0-47.0); LYMPH # 3.3 10^3/uL (1.5-5.0); LYMPH % 39.3 % (24.0-44.0); MEAN CORPUSCULAR HEMOGLOBIN 31.1 pg (27.0-33.0); MEAN CORPUSCULAR HGB CONC 31.8 g/dl (32.0-36.5); MEAN CORPUSCULAR VOLUME 97.7 fl (80.0-96.0); MONO # 0.6 10^3/uL (0.0-0.8); MONO % 7.6 % (0.0-5.0); NEUTROPHILS # 4.2 10^3/uL (1.5-8.5); NEUTROPHILS % 49.4 % (36.0-66.0); PLATELET COUNT, AUTOMATED 267 10^3/uL (150-450); RED BLOOD COUNT 3.54 10^6/uL (4.00-5.40); WHITE BLOOD COUNT 8.5 10^3/uL (4.0-10.0)
[2020-07-10 18:01] LABS: APPEARANCE, URINE CLEAR (CLEAR); BACTERIA, URINE AUTO NEGATIVE (NEGATIVE); BILIRUBIN, URINE AUTO NEGATIVE (NEGATIVE); BLOOD, URINE BLOOD NEGATIVE (NEGATIVE); COLOR, URINE YELLOW (YELLOW); GLUCOSE, URINE (UA) AUTO NEGATIVE (NEGATIVE); KETONE, URINE AUTO NEGATIVE (NEGATIVE); LEUKOCYTE ESTERASE, URINE AUTO TRACE (NEGATIVE); NITRITE, URINE AUTO NEGATIVE (NEGATIVE); PROTEIN, URINE AUTO NEGATIVE (NEGATIVE); RBC, URINE AUTO 1 /HPF (0-3); SPECIFIC GRAVITY URINE AUTO 1.015 (1.002-1.035); SQUAMOUS EPITHELIAL CELL UR AU 0 /HPF (0-6); UROBILINOGEN, URINE AUTO 0.2 mg/dL (0.0-2.0); WBC, URINE AUTO 1 /HPF (0-3)
[2020-07-10 18:30] LABS: CREATININE,RANDOM URINE 73.5 MG/DL; TOTAL PROTEIN,RANDOM URINE 6.4 MG/DL (0.0-12.0)
[2020-07-10 18:52] LABS: ERYTHROCYTE SEDIMENTATION RATE 20 mm/hr (0-30)
[2020-07-10 20:03] LABS: ALBUMIN 3.5 GM/DL (3.2-5.2); ALT/SGPT 36 U/L (12-78); BILIRUBIN,DIRECT 0.2 MG/DL (0.0-0.2); BILIRUBIN,TOTAL 0.4 MG/DL (0.2-1.0); C REACTIVE PROTEIN QUANTITATIV < 0.30 MG/DL (0.00-0.30); COMPLEMENT C3 93 MG/DL (90-180); COMPLEMENT C4 19 MG/DL (10-40); CPK CREATINE PHOSPHOKINASE 20 U/L (26-192); LDH LACTATE DEHYDROGENASE 134 U/L (84-246); TOTAL PROTEIN 6.4 GM/DL (6.4-8.2)
[2020-07-10 22:06] LABS: MYOGLOBIN 38 NG/ML (13-71)
[2020-07-11 11:12] LABS: DRVV SCREEN 39.5 SEC
== END ==
LOC: M WUC 15:11
PROVIDERS: ATTEND Internal Medicine
DX: L25.9 Unspecified contact dermatitis, unspecified cause (principal); M62.81 Muscle weakness (generalized); H04.129 Dry eye syndrome of unspecified lacrimal gland; I73.00 Raynaud's syndrome without gangrene

== ENCOUNTER → 2020-07-24 | Outpatient (REF) | payer OTHER ==
[2020-07-24 16:43] LABS: PERCENT SATURATION 30.4 % (13.2-45.0)
== END ==
LOC: M SFHCRHEU 13:39
PROVIDERS: ATTEND Internal Medicine
DX: D64.9 Anemia, unspecified (principal)

== ENCOUNTER → 2020-08-21 | Outpatient (REF) | payer OTHER ==
[2020-08-21 13:58] LABS: BASO # 0.1 10^3/uL (0.0-0.2); BASO % 1.1 % (0.0-1.0); EOS # 0.2 10^3/uL (0.0-0.5); EOS % 3.3 % (0.0-3.0); HEMOGLOBIN 11.8 g/dl (12.0-15.5); LYMPH # 2.6 10^3/uL (1.5-5.0); LYMPH % 38.9 % (24.0-44.0); MEAN CORPUSCULAR HEMOGLOBIN 31.1 pg (27.0-33.0); MEAN CORPUSCULAR HGB CONC 31.9 g/dl (32.0-36.5); MEAN CORPUSCULAR VOLUME 97.6 fl (80.0-96.0); MONO # 0.5 10^3/uL (0.0-0.8); MONO % 8.2 % (0.0-5.0); NEUTROPHILS # 3.2 10^3/uL (1.5-8.5); PLATELET COUNT, AUTOMATED 233 10^3/uL (150-450); RED BLOOD COUNT 3.79 10^6/uL (4.00-5.40); WHITE BLOOD COUNT 6.6 10^3/uL (4.0-10.0)
[2020-08-21 16:26] LABS: ALT/SGPT 116 U/L (12-78); BILIRUBIN,TOTAL 0.6 MG/DL (0.2-1.0); BLOOD UREA NITROGEN 27 MG/DL (7-18); CALCIUM LEVEL 9.2 MG/DL (8.8-10.2); CARBON DIOXIDE LEVEL 27 MEQ/L (21-32); CHLORIDE LEVEL 109 MEQ/L (98-107); CHOLESTEROL LEVEL 139 MG/DL (<200); CHOLESTEROL RISK RATIO 2.074 (<5); CREATININE FOR GFR 0.97 MG/DL (0.55-1.30); FREE T4 1.23 NG/DL (0.76-1.46); GLOMERULAR FILTRATION RATE > 60.0 (>45); GLUCOSE, FASTING 85 MG/DL (70-100); HDL CHOLESTEROL 67 MG/DL (>40); LDL CHOLESTEROL 64 MG/DL (<100); NON-HDL-C 72 MG/DL; POTASSIUM SERUM 4.5 MEQ/L (3.5-5.1); SODIUM LEVEL 142 MEQ/L (136-145); TOTAL PROTEIN 6.5 GM/DL (6.4-8.2); TRIGLYCERIDES LEVEL 40 MG/DL (<150)
== END ==
LOC: M PLALAB 10:17
PROVIDERS: ATTEND Nurse Practitioner Family
DX: Z00.00 Encounter for general adult medical examination without abnormal findings (principal); E03.9 Hypothyroidism, unspecified; M10.9 Gout, unspecified

== ENCOUNTER → 2020-09-24 | Outpatient (CLI) | payer OTHER ==
--- NOTE | 2020-10-08 14:20 | REPMRS ---
Patient History The patient states she has not had a clinical breast exam in over a year. Family history of breast cancer at age 65 in mother, breast cancer in maternal grandmother. Took hormonal contraceptives for 5 years. 3D TOMOSYNTHESIS WAS PERFORMED. [facility] lifetime risk for breast cancer is 12.6%. Volpara breast density b. Digital Woman Screen Mammo: September 24, 2020 - Exam #: [id number] Bilateral CC and MLO view(s) were taken. Technologist: Kya Fuchs, RT FINDINGS: There are scattered fibroglandular densities. There has been no change in the appearance of the mammogram from the prior studies. There is a mild amount of residual fibroglandular tissue which is fairly symmetric. There is no interval development of dominant mass, architectural distortion, or clustered microcalcification suggestive of malignancy. Assessment: BI-RADS/ACR category 1 mammogram. Negative Mammogram. Recommendation Routine screening mammogram in 1 year (for women over age 40). This mammogram was interpreted with the aid of an FDA-approved computer-aided dectection system. Electronically Signed By: Jorgito Ricardo MD 10/08/20 1602
== END ==
LOC: M WHC 08:51
PROVIDERS: ATTEND Nurse Practitioner Family
DX: Z12.31 Encounter for screening mammogram for malignant neoplasm of breast (principal); Z85.3 Personal history of malignant neoplasm of breast

== ENCOUNTER → 2020-11-14 | Outpatient (CLI) | payer OTHER, MEDICAID ==
[2020-11-14 11:31] LABS: BASO # 0.1 10^3/uL (0.0-0.2); BASO % 1.4 % (0.0-1.0); EOS # 0.2 10^3/uL (0.0-0.5); EOS % 3.1 % (0.0-3.0); HEMATOCRIT 35.7 % (36.0-47.0); HEMOGLOBIN 11.3 g/dl (12.0-15.5); LYMPH # 2.3 10^3/uL (1.5-5.0); LYMPH % 35.9 % (24.0-44.0); MEAN CORPUSCULAR HEMOGLOBIN 30.7 pg (27.0-33.0); MEAN CORPUSCULAR HGB CONC 31.7 g/dl (32.0-36.5); MONO # 0.5 10^3/uL (0.0-0.8); MONO % 8.4 % (2.0-8.0); NEUTROPHILS # 3.3 10^3/uL (1.5-8.5); NEUTROPHILS % 50.7 % (36.0-66.0); PLATELET COUNT, AUTOMATED 214 10^3/uL (150-450); RED BLOOD COUNT 3.68 10^6/uL (4.00-5.40); WHITE BLOOD COUNT 6.4 10^3/uL (4.0-10.0)
[2020-11-14 12:12] LABS: ALBUMIN 3.5 GM/DL (3.2-5.2); BLOOD UREA NITROGEN 24 MG/DL (7-18); CALCIUM LEVEL 9.3 MG/DL (8.8-10.2); CARBON DIOXIDE LEVEL 30 MEQ/L (21-32); CHLORIDE LEVEL 113 MEQ/L (98-107); CREATININE FOR GFR 0.89 MG/DL (0.55-1.30); GLOMERULAR FILTRATION RATE > 60.0 (>45); GLUCOSE, FASTING 91 MG/DL (70-100); PHOSPHORUS LEVEL 3.6 MG/DL (2.5-4.9); POTASSIUM SERUM 4.7 MEQ/L (3.5-5.1); SODIUM LEVEL 145 MEQ/L (136-145)
== END ==
LOC: M WUC 09:42
PROVIDERS: ATTEND Internal Medicine Cardiovascular Disease
DX: I35.1 Nonrheumatic aortic (valve) insufficiency (principal); I10 Essential (primary) hypertension

== ENCOUNTER → 2020-12-27 | Outpatient (REF) | payer OTHER | LOC: M SFHCLERA 15:50 | PROVIDERS: ATTEND Nurse Practitioner Family | DX: J06.9 Acute upper respiratory infection, unspecified (principal) ==

== ENCOUNTER → 2021-05-31 | Outpatient (REF) | payer OTHER ==
[~2021-05-31] MED LIST changes: +DOXY-443 PO; -DOXY100C37 PO
== END ==
LOC: M SFHCRHEU 12:51
PROVIDERS: ATTEND Internal Medicine
DX: Z51.81 Encounter for therapeutic drug level monitoring (principal); Z79.899 Other long term (current) drug therapy

== ENCOUNTER → 2021-05-31 | Outpatient (CLI) | payer OTHER ==
[2021-05-31 10:41] LABS: BASO # 0.1 10^3/uL (0.0-0.2); BASO % 1.1 % (0.0-1.0); EOS # 0.3 10^3/uL (0.0-0.5); EOS % 2.6 % (0.0-3.0); HEMATOCRIT 38.1 % (36.0-47.0); HEMOGLOBIN 12.1 g/dl (12.0-15.5); LYMPH # 2.7 10^3/uL (1.5-5.0); LYMPH % 28.2 % (24.0-44.0); MEAN CORPUSCULAR HEMOGLOBIN 31.2 pg (27.0-33.0); MEAN CORPUSCULAR HGB CONC 31.8 g/dl (32.0-36.5); MEAN CORPUSCULAR VOLUME 98.2 fl (80.0-96.0); MONO # 0.7 10^3/uL (0.0-0.8); MONO % 7.5 % (2.0-8.0); NEUTROPHILS # 5.8 10^3/uL (1.5-8.5); NEUTROPHILS % 60.2 % (36.0-66.0); PLATELET COUNT, AUTOMATED 261 10^3/uL (150-450); RED BLOOD COUNT 3.88 10^6/uL (4.00-5.40); WHITE BLOOD COUNT 9.6 10^3/uL (4.0-10.0)
[2021-05-31 11:32] LABS: ALT/SGPT 19 U/L (12-78); BILIRUBIN,TOTAL 0.5 MG/DL (0.2-1.0); BLOOD UREA NITROGEN 20 MG/DL (7-18); CALCIUM LEVEL 8.7 MG/DL (8.8-10.2); CARBON DIOXIDE LEVEL 32 MEQ/L (21-32); CHLORIDE LEVEL 111 MEQ/L (98-107); CHOLESTEROL LEVEL 156 MG/DL (<200); CHOLESTEROL RISK RATIO 2.136 (<5); CREATININE FOR GFR 0.91 MG/DL (0.55-1.30); FERRITIN 347 NG/ML (8-252); FREE T4 1.26 NG/DL (0.76-1.46); GLOMERULAR FILTRATION RATE > 60.0 (>45); GLUCOSE, FASTING 87 MG/DL (70-100); HDL CHOLESTEROL 73 MG/DL (>40); LDL CHOLESTEROL 72 MG/DL (<100); NON-HDL-C 83 MG/DL; POTASSIUM SERUM 5.1 MEQ/L (3.5-5.1); SODIUM LEVEL 145 MEQ/L (136-145); TOTAL PROTEIN 6.1 GM/DL (6.4-8.2); TRIGLYCERIDES LEVEL 57 MG/DL (<150)
== END ==
LOC: M LAB 09:26
PROVIDERS: ATTEND Nurse Practitioner Family
DX: I10 Essential (primary) hypertension (principal)

== ENCOUNTER 2021-06-07 08:01 | Outpatient (RCR) | payer OTHER | END 2021-06-09 | LOC: M PT 08:01 | PROVIDERS: ATTEND Physician Assistant Surgical | DX: M70.61 Trochanteric bursitis, right hip (principal); M17.12 Unilateral primary osteoarthritis, left knee ==

== ENCOUNTER → 2021-06-27 | Outpatient (CLI) | payer MEDICARE, OTHER | LOC: M LAB 13:27 | PROVIDERS: ATTEND Internal Medicine | DX: Z79.899 Other long term (current) drug therapy (principal) ==

== ENCOUNTER 2021-07-08 08:57 | Outpatient (RCR) | payer MEDICARE, OTHER ==
[~2021-07-08 08:57] MED LIST changes: -ALLO100T; +ALLO100T PO; +LOSA50TA28; -LOSA50TA88; -OMEP-221 PO; +OMEP40CA5 PO
[2021-08-29] MEDS ORDERED: AUGM0.0534 TOP (11:05)
[2021-08-29] MEDS ORDERED: ATEN25TA PO (11:05)
[2021-08-29] MEDS ORDERED: HYDR200T3 PO (11:05)
[2021-08-29] MEDS ORDERED: BIOT1000 PO (11:05)
[2021-08-29] MEDS ORDERED: BUSP5TA PO (11:05)
[2021-08-29] MEDS ORDERED: VITA200032 PO (11:06)
[2021-08-29] MEDS ORDERED: ARNU1INH3 INH (11:06)
[2021-08-29] MEDS ORDERED: BRIM1OPD OU (11:06)
[2021-08-29] MEDS ORDERED: ZOLO100T PO (11:06)
[2021-08-29] MEDS ORDERED: TRAZ-252 PO (11:06)
[2021-08-29] MEDS ORDERED: MAPA500C PO (11:13)
[2021-08-29] MEDS ORDERED: MULTTAB86 PO (11:13)
== END 2021-07-09 ==
LOC: M PT 08:57
PROVIDERS: ATTEND Physician Assistant Surgical
DX: M70.61 Trochanteric bursitis, right hip (principal); M17.12 Unilateral primary osteoarthritis, left knee

== ENCOUNTER → 2021-07-13 | Outpatient (CLI) | payer MEDICARE ==
[~2021-07-13] MED LIST changes: +ALLO100T; -ALLO100T PO; -LOSA50TA28; +LOSA50TA88; +OMEP-221 PO; -OMEP40CA5 PO
--- NOTE | 2021-07-15 15:52 | SLEEPCENT ---
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 Seven hours and 13 minutes of data were reviewed. There were 310.5 minutes of sleep identified. Sleep latency was prolonged at 22.5 minutes. REM sleep was not achieved. Sleep architecture showed some poor progression, no fragmentation was seen really. The overall sleep efficiency was 73.2%. The electrocardiogram showed a sinus-appearing rhythm with an average heart rate of 50 beats per minute. Rate ranged 40-60. EEG showed normal waveforms for wake and sleep. There were only 15 respiratory events identified of 10 seconds in duration or greater for an apnea-hypopnea index of 2.9. The events were hypopneic, not exclusive to sleep stage, seen more in the left lateral recumbent position. Arousals from respiratory events occurred only once per hour. There was some limb activity. Limb movement arousal index was 2.4. No oxygen desaturations below 90% were appreciated. Significant snoring was however noted over the entire study. IMPRESSION: Normal nocturnal polysomnography with snoring. cc: Karen Bates ENP
== END ==
LOC: M SLEEP 20:00
PROVIDERS: ATTEND Nurse Practitioner Family
DX: R06.83 Snoring (principal)

== ENCOUNTER 2021-08-08 09:15 | Outpatient (RCR) | payer MEDICARE, OTHER | END 2021-08-09 | LOC: M PT 09:15 | PROVIDERS: ATTEND Physician Assistant Surgical | DX: M70.61 Trochanteric bursitis, right hip (principal); M17.12 Unilateral primary osteoarthritis, left knee | CPT/HCPCS: 97140; G0283 ==

== ENCOUNTER → 2021-08-28 | Outpatient (CLI) | payer MEDICARE, OTHER ==
[~2021-08-28] MED LIST changes: +ARNU1INH3 INH; +ATEN25TA PO; +AUGM0.0534 TOP; +BIOT1000 PO; +BRIM1OPD OU; +BUSP5TA PO; +HYDR200T3 PO; +LOSA50TA28; -LOSA50TA88; +MAPA500C PO; +MULTTAB86 PO; -OMEP-221 PO; +OMEP40CA5 PO; +TRAZ-252 PO; +VITA200032 PO; +ZOLO100T PO
== END ==
LOC: M LAB 09:51
PROVIDERS: ATTEND Internal Medicine
DX: L25.9 Unspecified contact dermatitis, unspecified cause (principal); Z79.899 Other long term (current) drug therapy; Z51.81 Encounter for therapeutic drug level monitoring

== ENCOUNTER → 2021-08-28 | Outpatient (CLI) | payer MEDICARE, OTHER ==
[~2021-08-28] MED LIST changes: -ALLO100T; +ALLO100T PO; +OXYC1TAB23 PO
[2021-08-28 11:39] LABS: BASO # 0.1 10^3/uL (0.0-0.2); EOS # 0.3 10^3/uL (0.0-0.5); EOS % 4.3 % (0.0-3.0); HEMATOCRIT 38.4 % (36.0-47.0); HEMOGLOBIN 12.3 g/dl (12.0-15.5); LYMPH # 2.7 10^3/uL (1.5-5.0); LYMPH % 34.9 % (24.0-44.0); MEAN CORPUSCULAR HEMOGLOBIN 30.5 pg (27.0-33.0); MEAN CORPUSCULAR VOLUME 95.3 fl (80.0-96.0); MONO # 0.6 10^3/uL (0.0-0.8); MONO % 7.1 % (2.0-8.0); NEUTROPHILS # 4.1 10^3/uL (1.5-8.5); NEUTROPHILS % 52.6 % (36.0-66.0); PLATELET COUNT, AUTOMATED 198 10^3/uL (150-450); RED BLOOD COUNT 4.03 10^6/uL (4.00-5.40); WHITE BLOOD COUNT 7.7 10^3/uL (4.0-10.0)
[2021-08-28 13:55] LABS: BLOOD UREA NITROGEN 19 MG/DL (7-18); CALCIUM LEVEL 9.4 MG/DL (8.8-10.2); CARBON DIOXIDE LEVEL 31 MEQ/L (21-32); CHLORIDE LEVEL 107 MEQ/L (98-107); CREATININE FOR GFR 0.83 MG/DL (0.55-1.30); FREE T4 1.16 NG/DL (0.76-1.46); GLOMERULAR FILTRATION RATE > 60.0 (>45); GLUCOSE, FASTING 81 MG/DL (70-100); POTASSIUM SERUM 4.2 MEQ/L (3.5-5.1); SODIUM LEVEL 141 MEQ/L (136-145)
== END ==
LOC: M RAD 09:54
PROVIDERS: ATTEND Student in an Organized Health Care Education/Training Program
DX: Z01.818 Encounter for other preprocedural examination (principal); Z79.899 Other long term (current) drug therapy; Z51.81 Encounter for therapeutic drug level monitoring

== ENCOUNTER → 2021-08-31 | Outpatient (CLI) | payer MEDICARE, OTHER ==
[~2021-08-31] MED LIST changes: +ALLO100T; -ALLO100T PO; -OXYC1TAB23 PO
== END ==
LOC: M LABSMTC 10:58
PROVIDERS: ATTEND Anesthesiology
DX: Z01.812 Encounter for preprocedural laboratory examination (principal); Z20.822 Contact with and (suspected) exposure to COVID-19

== ENCOUNTER 2021-09-03 08:22 | Outpatient (RCR) | payer MEDICARE, OTHER ==
[~2021-09-03 08:22] MED LIST changes: -ALLO100T; +ALLO100T PO
[2021-09-06] MEDS ORDERED: OXYC1TAB23 PO (10:08)
== END 2021-09-09 ==
LOC: M PT 08:22
PROVIDERS: ATTEND Physician Assistant Surgical
DX: M70.61 Trochanteric bursitis, right hip (principal); M17.12 Unilateral primary osteoarthritis, left knee
CPT/HCPCS: 97140; G0283

== ENCOUNTER 2021-09-05 06:10 | Observation (INO) | payer MEDICARE, OTHER ==
[~2021-09-05] VITALS: Ht 165.1 cm; Wt 77.1 kg
[2021-09-05] VITALS (7 sets, daily range): BP systolic 133–142; BP diastolic 76–84
[~2021-09-05 06:10] MED LIST changes: +HEPARIN SOD (PORCINE) 5000UNITS/ML 1ML VIAL/SYRINGE SQ ONE; +LR 1,000 ML IV ONE; +ceFAZolin SOD 2 GM in IV 1 EA IV ONE
[2021-09-05] MEDS ORDERED: MIDAZOLAM INJ 2MG/2ML VIAL (J2250 PER 1MG) As Ordered ONE (07:00)
[2021-09-05] MEDS ORDERED: dexameTHASONE 4 MG/ML 1ML VIAL (J1100 PER 1MG) As Ordered ONE (07:00)
[2021-09-05] MEDS ORDERED: fentaNYL 250 MCG/5 ML INJECTION As Ordered ONE (07:00)
[2021-09-05] MEDS ORDERED: ONDANSETRON 4MG/2ML VIAL As Ordered ONE (07:00)
[2021-09-05] MEDS ORDERED: LIDOCAINE 2% 100MG/5ML SDV (FOR ANES.) As Ordered ONE ×2 (07:00→10:44)
[2021-09-05] MEDS ORDERED: propofoL 200 MG/20 ML VIAL As Ordered ONE (07:00)
[2021-09-05] MEDS ORDERED: SUGAMMADEX SODIUM 500 MG/5 ML VIAL (BRIDION) As Ordered ONE (07:00)
[2021-09-05] MEDS ORDERED: ROCURONIUM BROMIDE 50 MG/5 ML VIAL As Ordered ONE ×2 (07:00→08:46)
[2021-09-05] MEDS ORDERED: GENTAMICIN SULF 80MG/2ML VIAL As Ordered ONE (07:10)
[2021-09-05] MEDS ORDERED: BUPIVACAINE LIPOSOME/PF 1.3% 20ML VIAL (13.3MG/ML)(EXPAREL)(C9290 PER1MG) As Ordered ONE (07:10)
[2021-09-05] MEDS ORDERED: LR 1,000 ML IV SCH ×2 (11:25→11:45)
[2021-09-05] MEDS ORDERED: oxyCODONE 5MG TAB PO PRN (11:45)
[2021-09-05] MEDS ORDERED: fentaNYL 100 MCG/2 ML INJECTION IV PRN (11:45)
[2021-09-05] MEDS ORDERED: ONDANSETRON 4MG/2ML VIAL IV PRN (11:45)
[2021-09-05] MEDS ORDERED: MOM 30ML SUSPENSION UDC PO PRN (14:15)
[2021-09-05] MEDS: ACETAMINOPHEN TAB 650MG DOSE (2X325MG) PO PRN ×2 (14:58→20:59)
[2021-09-05] MEDS ORDERED: ALBUTEROL 90 MCG/ACT 8GM HFA INHALER INH PRN (16:05)
[2021-09-05] MEDS ORDERED: IPRATROPIUM 0.5MG/ALBUTEROL 2.5MG INH SOL UD 3ML (DUONEB) INH PRN (16:05)
[2021-09-05] MEDS ORDERED: HOME MED LIST COMPLETE! XX SCH (17:00)
[2021-09-05] MEDS: FAMOTIDINE 20 MG TAB PO SCH (17:44)
[2021-09-05] MEDS: atenoloL 25 MG TAB PO SCH (17:45)
[2021-09-05] MEDS: allopurinoL 100 MG TAB PO SCH (17:45)
[2021-09-05] MEDS: SERTRALINE 100 MG TAB PO SCH (17:45)
[2021-09-05] MEDS: busPIRone 5 MG TAB PO SCH ×2 (17:45→20:56)
[2021-09-05] MEDS: OMEPRAZOLE 20MG CAP PO SCH (17:45)
[2021-09-05] MEDS: HEPARIN SOD (PORCINE) 5000UNITS/ML 1ML VIAL/SYRINGE SQ SCH (20:57)
[2021-09-05] MEDS ORDERED: BRIMONIDINE 0.1% OPHTH SOLN 5 ML OU SCH (21:00)
[2021-09-05] MEDS ORDERED: traZODone 50 MG TAB PO SCH (21:00)
[2021-09-06] VITALS: BP 109/56
[2021-09-06 04:00] VITALS: BP 100/48
[2021-09-06] MEDS ORDERED: LEVOTHYROXINE 88MCG TABLET (0.088 MG) PO SCH (06:00)
[2021-09-06 09:00] VITALS: BP 100/48
[2021-09-06] MEDS: atenoloL 25 MG TAB PO SCH (09:00)
[2021-09-06] MEDS ORDERED: PERCOCET 5MG/325MG TAB PO ONE (09:00)
[2021-09-06] MEDS: allopurinoL 100 MG TAB PO SCH (09:04)
[2021-09-06] MEDS: SERTRALINE 100 MG TAB PO SCH (09:05)
[2021-09-06] MEDS: OMEPRAZOLE 20MG CAP PO SCH (09:05)
[2021-09-06] MEDS: busPIRone 5 MG TAB PO SCH (09:05)
[2021-09-06] MEDS: FAMOTIDINE 20 MG TAB PO SCH (09:05)
[2021-09-06] MEDS: HEPARIN SOD (PORCINE) 5000UNITS/ML 1ML VIAL/SYRINGE SQ SCH (09:06)
[2021-09-06] MEDS ORDERED: OXYC1TAB23 PO (10:08)
[2021-09-06 11:15] LABS: BASO # 0.1 10^3/uL (0.0-0.2); BASO % 0.5 % (0.0-1.0); EOS # 0.1 10^3/uL (0.0-0.5); HEMATOCRIT 28.7 % (36.0-47.0); HEMOGLOBIN 9.5 g/dl (12.0-15.5); LYMPH # 2.8 10^3/uL (1.5-5.0); LYMPH % 26.7 % (24.0-44.0); MEAN CORPUSCULAR HEMOGLOBIN 30.8 pg (27.0-33.0); MEAN CORPUSCULAR HGB CONC 33.1 g/dl (32.0-36.5); MEAN CORPUSCULAR VOLUME 93.2 fl (80.0-96.0); MONO % 9.8 % (2.0-8.0); NEUTROPHILS # 6.5 10^3/uL (1.5-8.5); NEUTROPHILS % 61.7 % (36.0-66.0); PLATELET COUNT, AUTOMATED 188 10^3/uL (150-450); RED BLOOD COUNT 3.08 10^6/uL (4.00-5.40); WHITE BLOOD COUNT 10.6 10^3/uL (4.0-10.0)
[2021-09-06 11:30] LABS: BLOOD UREA NITROGEN 22 MG/DL (7-18); CALCIUM LEVEL 8.6 MG/DL (8.8-10.2); CARBON DIOXIDE LEVEL 27 MEQ/L (21-32); CHLORIDE LEVEL 108 MEQ/L (98-107); CREATININE FOR GFR 0.95 MG/DL (0.55-1.30); GLOMERULAR FILTRATION RATE > 60.0 (>45); GLUCOSE, FASTING 102 MG/DL (70-100); POTASSIUM SERUM 4.3 MEQ/L (3.5-5.1); SODIUM LEVEL 141 MEQ/L (136-145)
== END 2021-09-06 13:40 | disposition home or self-care (01) ==
LOC: M SDC 06:10 → M MS5PR 06:11
PROVIDERS: ADMIT Internal Medicine; ATTEND Internal Medicine
DX: M54.07 Panniculitis affecting regions of neck and back, lumbosacral region (principal); M62.08 Separation of muscle (nontraumatic), other site; L30.4 Erythema intertrigo; Z98.84 Bariatric surgery status; I49.8 Other specified cardiac arrhythmias; I51.7 Cardiomegaly; M10.9 Gout, unspecified; E03.9 Hypothyroidism, unspecified; R10.13 Epigastric pain; R14.2 Eructation; Z87.19 Personal history of other diseases of the digestive system; M19.90 Unspecified osteoarthritis, unspecified site; Z99.3 Dependence on wheelchair; I73.00 Raynaud's syndrome without gangrene; F32.9 Major depressive disorder, single episode, unspecified; F41.9 Anxiety disorder, unspecified; J45.909 Unspecified asthma, uncomplicated; Z88.8 Allergy status to other drugs, medicaments and biological substances; Z88.1 Allergy status to other antibiotic agents; Z79.899 Other long term (current) drug therapy; Z79.51 Long term (current) use of inhaled steroids; Z79.2 Long term (current) use of antibiotics
CPT/HCPCS: 15830; 15847; 36415; 80048; 85025; 88300; 96372; C9290; G0378; J0690; J1100; J1580; J1644; J2250; J2405; J3010

== ENCOUNTER 2021-09-07 14:59 | Observation (INO) | payer MEDICARE, OTHER ==
[2021-09-07] VITALS (7 sets, daily range): BP systolic 105–124; BP diastolic 54–58
[~2021-09-07] VITALS: Ht 165.1 cm; Wt 78.1 kg
[~2021-09-07 14:59] MED LIST changes: -HEPARIN SOD (PORCINE) 5000UNITS/ML 1ML VIAL/SYRINGE SQ ONE; -LR 1,000 ML IV ONE; +OXYC1TAB23 PO; -ceFAZolin SOD 2 GM in IV 1 EA IV ONE
[2021-09-07] MEDS ORDERED: NS 1,000 ML IV ONE (16:30)
[2021-09-07 16:47] LABS: VENOUS HCO3 21.7 MEQ/L (23.0-27.0); VENOUS O2 SATURATION 63.5 % (60.0-80.0); VENOUS PARTIAL PRESSURE CO2 42.4 mmHg (38.0-50.0); VENOUS PARTIAL PRESSURE O2 36.2 mmHg (30.0-50.0); VENOUS PH 7.327 UNITS (7.330-7.430); VENOUS STANDARD HCO3 20.7 MEQ/L
[2021-09-07 17:18] LABS: CK-MB VALUE MASS < 1.0 NG/ML (<3.6); CPK CREATINE PHOSPHOKINASE 17 U/L (26-192); MB/CK RELATIVE INDEX 5.88 (< OR =4)
[2021-09-07 17:24] LABS: BASO % 0.4 % (0.0-1.0); BLOOD UREA NITROGEN 25 MG/DL (7-18); CALCIUM LEVEL 7.3 MG/DL (8.8-10.2); CARBON DIOXIDE LEVEL 25 MEQ/L (21-32); CHLORIDE LEVEL 113 MEQ/L (98-107); CREATININE FOR GFR 0.79 MG/DL (0.55-1.30); EOS # 0.2 10^3/uL (0.0-0.5); EOS % 1.7 % (0.0-3.0); ETHYL ALCOHOL (ETHANOL) < 0.003 % (0.000-0.010); GLOMERULAR FILTRATION RATE > 60.0 (>45); GLUCOSE, FASTING 93 MG/DL (70-100); HEMATOCRIT 22.6 % (36.0-47.0); LYMPH # 1.6 10^3/uL (1.5-5.0); LYMPH % 16.7 % (24.0-44.0); MEAN CORPUSCULAR HEMOGLOBIN 31.6 pg (27.0-33.0); MEAN CORPUSCULAR HGB CONC 32.3 g/dl (32.0-36.5); MEAN CORPUSCULAR VOLUME 97.8 fl (80.0-96.0); MONO % 9.9 % (2.0-8.0); NEUTROPHILS # 6.8 10^3/uL (1.5-8.5); NEUTROPHILS % 70.9 % (36.0-66.0); PLATELET COUNT, AUTOMATED 157 10^3/uL (150-450); POTASSIUM SERUM 4.3 MEQ/L (3.5-5.1); RED BLOOD COUNT 2.31 10^6/uL (4.00-5.40); SODIUM LEVEL 145 MEQ/L (136-145); THYROID STIMULATING HORMONE 0.922 uIU/ML (0.358-3.740); WHITE BLOOD COUNT 9.6 10^3/uL (4.0-10.0)
[2021-09-07 17:25] LABS: HEMOGLOBIN 7.3 g/dl (12.0-15.5)
[2021-09-07] MEDS ORDERED: ISOVUE-370 76% 100ML VIAL As Ordered ONE (17:26)
[2021-09-07 17:40] LABS: INR 1.15; PARTIAL THROMBOPLASTIN TIME 32.6 SECONDS (25.9-37.0); PROTHROMBIN TIME 15.1 SECONDS (12.7-14.5)
[2021-09-07] MEDS ORDERED: PERCOCET 5MG/325MG TAB PO PRN (19:10)
[2021-09-07] MEDS ORDERED: IPRATROPIUM 0.5MG/ALBUTEROL 2.5MG INH SOL UD 3ML (DUONEB) INH PRN (19:10)
[2021-09-07] MEDS ORDERED: ACETAMINOPHEN 500 MG TAB PO PRN (19:10)
[2021-09-07] MEDS ORDERED: ALBUTEROL 90 MCG/ACT 8GM HFA INHALER INH PRN (19:10)
[2021-09-07] MEDS ORDERED: HOME MED LIST COMPLETE! XX SCH (19:10)
[2021-09-08] VITALS (9 sets, daily range): BP systolic 100–136; BP diastolic 50–81
[2021-09-08] MEDS: traZODone 50 MG TAB PO SCH ×2 (00:34→20:47)
[2021-09-08] MEDS: busPIRone 5 MG TAB PO SCH ×4 (00:34→20:47)
[2021-09-08] MEDS: BRIMONIDINE 0.1% OPHTH SOLN 5 ML OU SCH ×2 (00:35→20:47)
[2021-09-08 04:48] LABS: BASO % 0.5 % (0.0-1.0); EOS # 0.2 10^3/uL (0.0-0.5); EOS % 2.2 % (0.0-3.0); HEMATOCRIT 26.8 % (36.0-47.0); HEMOGLOBIN 8.8 g/dl (12.0-15.5); LYMPH # 2.7 10^3/uL (1.5-5.0); LYMPH % 32.5 % (24.0-44.0); MEAN CORPUSCULAR HEMOGLOBIN 29.6 pg (27.0-33.0); MEAN CORPUSCULAR HGB CONC 32.8 g/dl (32.0-36.5); MEAN CORPUSCULAR VOLUME 90.2 fl (80.0-96.0); MONO # 0.9 10^3/uL (0.0-0.8); NEUTROPHILS # 4.4 10^3/uL (1.5-8.5); NEUTROPHILS % 53.4 % (36.0-66.0); PLATELET COUNT, AUTOMATED 151 10^3/uL (150-450); RED BLOOD COUNT 2.97 10^6/uL (4.00-5.40); WHITE BLOOD COUNT 8.3 10^3/uL (4.0-10.0)
[2021-09-08 05:18] LABS: ALBUMIN 2.2 GM/DL (3.2-5.2); ALT/SGPT 86 U/L (12-78); BILIRUBIN,TOTAL 0.7 MG/DL (0.2-1.0); BLOOD UREA NITROGEN 23 MG/DL (7-18); CALCIUM LEVEL 7.7 MG/DL (8.8-10.2); CARBON DIOXIDE LEVEL 26 MEQ/L (21-32); CHLORIDE LEVEL 111 MEQ/L (98-107); CREATININE FOR GFR 0.77 MG/DL (0.55-1.30); GLOMERULAR FILTRATION RATE > 60.0 (>45); GLUCOSE, FASTING 74 MG/DL (70-100); MAGNESIUM LEVEL 1.7 MG/DL (1.8-2.4); POTASSIUM SERUM 4.1 MEQ/L (3.5-5.1); SODIUM LEVEL 142 MEQ/L (136-145); TOTAL PROTEIN 4.7 GM/DL (6.4-8.2)
[2021-09-08] MEDS: LEVOTHYROXINE 88MCG TABLET (0.088 MG) PO SCH (06:03)
[2021-09-08] MEDS ORDERED: MAG SULF 1GM/100ML (MAG RUN) 1 GM in IV 1 EA IV ONE (07:05)
[2021-09-08] MEDS: FAMOTIDINE 20 MG TAB PO SCH (11:05)
[2021-09-08] MEDS: allopurinoL 100 MG TAB PO SCH (11:05)
[2021-09-08] MEDS: SERTRALINE 100 MG TAB PO SCH (11:06)
[2021-09-08] MEDS: HYDROXYCHLOROQUINE 200 MG TAB PO SCH (11:06)
[2021-09-08] MEDS: cefTRIAXone SOD 1 GM in D5W MINI-BAG PLUS 50 ML IV SCH (15:08)
[2021-09-08] MEDS: OMEPRAZOLE 20MG CAP PO SCH (15:12)
[2021-09-08 17:54] LABS: BASO % 0.3 % (0.0-1.0); EOS # 0.2 10^3/uL (0.0-0.5); EOS % 2.7 % (0.0-3.0); HEMATOCRIT 31.4 % (36.0-47.0); HEMOGLOBIN 10.4 g/dl (12.0-15.5); LYMPH # 2.5 10^3/uL (1.5-5.0); LYMPH % 28.9 % (24.0-44.0); MEAN CORPUSCULAR HEMOGLOBIN 30.2 pg (27.0-33.0); MEAN CORPUSCULAR HGB CONC 33.1 g/dl (32.0-36.5); MEAN CORPUSCULAR VOLUME 91.3 fl (80.0-96.0); MONO # 0.9 10^3/uL (0.0-0.8); MONO % 10.1 % (2.0-8.0); NEUTROPHILS % 57.5 % (36.0-66.0); PLATELET COUNT, AUTOMATED 156 10^3/uL (150-450); RED BLOOD COUNT 3.44 10^6/uL (4.00-5.40); WHITE BLOOD COUNT 8.6 10^3/uL (4.0-10.0)
[2021-09-09] VITALS: BP 124/58
[2021-09-09 04:00] VITALS: BP 124/60
[2021-09-09] MEDS: LEVOTHYROXINE 88MCG TABLET (0.088 MG) PO SCH (05:40)
[2021-09-09 06:42] LABS: BASO # 0.1 10^3/uL (0.0-0.2); BASO % 0.6 % (0.0-1.0); EOS # 0.3 10^3/uL (0.0-0.5); EOS % 3.8 % (0.0-3.0); HEMATOCRIT 29.7 % (36.0-47.0); HEMOGLOBIN 10.1 g/dl (12.0-15.5); LYMPH % 26.5 % (24.0-44.0); MEAN CORPUSCULAR HEMOGLOBIN 30.4 pg (27.0-33.0); MEAN CORPUSCULAR VOLUME 89.5 fl (80.0-96.0); MONO # 0.8 10^3/uL (0.0-0.8); MONO % 10.4 % (2.0-8.0); NEUTROPHILS # 4.5 10^3/uL (1.5-8.5); NEUTROPHILS % 58.1 % (36.0-66.0); PLATELET COUNT, AUTOMATED 161 10^3/uL (150-450); RED BLOOD COUNT 3.32 10^6/uL (4.00-5.40); WHITE BLOOD COUNT 7.7 10^3/uL (4.0-10.0)
[2021-09-09 07:05] LABS: ALBUMIN 2.2 GM/DL (3.2-5.2); ALT/SGPT 62 U/L (12-78); BILIRUBIN,TOTAL 0.5 MG/DL (0.2-1.0); BLOOD UREA NITROGEN 20 MG/DL (7-18); CALCIUM LEVEL 7.9 MG/DL (8.8-10.2); CARBON DIOXIDE LEVEL 25 MEQ/L (21-32); CHLORIDE LEVEL 109 MEQ/L (98-107); CREATININE FOR GFR 0.65 MG/DL (0.55-1.30); GLOMERULAR FILTRATION RATE > 60.0 (>45); GLUCOSE, FASTING 64 MG/DL (70-100); POTASSIUM SERUM 4.2 MEQ/L (3.5-5.1); SODIUM LEVEL 141 MEQ/L (136-145); TOTAL PROTEIN 4.9 GM/DL (6.4-8.2)
[2021-09-09 07:55] VITALS: BP 119/67
[2021-09-09] MEDS: MULTIVITAMINS/MINERALS THERAP 1 TAB PO SCH (09:06)
[2021-09-09] MEDS: SERTRALINE 100 MG TAB PO SCH (09:07)
[2021-09-09] MEDS: FAMOTIDINE 20 MG TAB PO SCH (09:07)
[2021-09-09] MEDS: busPIRone 5 MG TAB PO SCH ×3 (09:08→20:44)
[2021-09-09] MEDS: HYDROXYCHLOROQUINE 200 MG TAB PO SCH (09:09)
[2021-09-09] MEDS: OMEPRAZOLE 20MG CAP PO SCH (09:09)
[2021-09-09] MEDS: allopurinoL 100 MG TAB PO SCH (09:10)
[2021-09-09 10:22] LABS: MAGNESIUM LEVEL 1.9 MG/DL (1.8-2.4)
[2021-09-09 12:13] VITALS: BP 132/62
[2021-09-09] MEDS: cefTRIAXone SOD 1 GM in D5W MINI-BAG PLUS 50 ML IV SCH (12:18)
[2021-09-09] MEDS: MIRALAX *UNIT DOSE* 17GM PACKET PO PRN (12:20)
[2021-09-09 13:00] LABS: HEMATOCRIT 31.2 % (36.0-47.0); HEMOGLOBIN 10.6 g/dl (12.0-15.5)
[2021-09-09 16:29] VITALS: BP 139/69
[2021-09-09 18:38] LABS: HEMATOCRIT 30.5 % (36.0-47.0); HEMOGLOBIN 10.4 g/dl (12.0-15.5)
[2021-09-09 20:00] VITALS: BP 120/85
[2021-09-09] MEDS: traZODone 50 MG TAB PO SCH (20:45)
[2021-09-09] MEDS: BRIMONIDINE 0.1% OPHTH SOLN 5 ML OU SCH (20:45)
[2021-09-10 00:34] LABS: HEMATOCRIT 30.5 % (36.0-47.0); HEMOGLOBIN 10.4 g/dl (12.0-15.5)
[2021-09-10] MEDS ORDERED: traZODone 50 MG TAB PO ONE (01:30)
[2021-09-10 04:00] VITALS: BP 122/67
[2021-09-10] MEDS: LEVOTHYROXINE 88MCG TABLET (0.088 MG) PO SCH (06:00)
[2021-09-10 06:07] LABS: BASO % 0.5 % (0.0-1.0); EOS # 0.5 10^3/uL (0.0-0.5); EOS % 5.6 % (0.0-3.0); HEMATOCRIT 30.8 % (36.0-47.0); HEMOGLOBIN 10.7 g/dl (12.0-15.5); LYMPH # 2.4 10^3/uL (1.5-5.0); MEAN CORPUSCULAR HEMOGLOBIN 30.8 pg (27.0-33.0); MEAN CORPUSCULAR HGB CONC 34.7 g/dl (32.0-36.5); MEAN CORPUSCULAR VOLUME 88.8 fl (80.0-96.0); MONO % 12.2 % (2.0-8.0); NEUTROPHILS # 4.4 10^3/uL (1.5-8.5); PLATELET COUNT, AUTOMATED 201 10^3/uL (150-450); RED BLOOD COUNT 3.47 10^6/uL (4.00-5.40); WHITE BLOOD COUNT 8.4 10^3/uL (4.0-10.0)
[2021-09-10 06:38] LABS: ALBUMIN 2.4 GM/DL (3.2-5.2); ALT/SGPT 52 U/L (12-78); BILIRUBIN,TOTAL 0.3 MG/DL (0.2-1.0); BLOOD UREA NITROGEN 20 MG/DL (7-18); CALCIUM LEVEL 8.1 MG/DL (8.8-10.2); CARBON DIOXIDE LEVEL 28 MEQ/L (21-32); CHLORIDE LEVEL 109 MEQ/L (98-107); CREATININE FOR GFR 0.79 MG/DL (0.55-1.30); GLOMERULAR FILTRATION RATE > 60.0 (>45); GLUCOSE, FASTING 91 MG/DL (70-100); POTASSIUM SERUM 3.9 MEQ/L (3.5-5.1); SODIUM LEVEL 140 MEQ/L (136-145); TOTAL PROTEIN 5.1 GM/DL (6.4-8.2)
[2021-09-10 07:56] VITALS: BP 130/76
[2021-09-10] MEDS: MIRALAX *UNIT DOSE* 17GM PACKET PO PRN (08:49)
[2021-09-10] MEDS: OMEPRAZOLE 20MG CAP PO SCH (08:50)
[2021-09-10] MEDS: FAMOTIDINE 20 MG TAB PO SCH (08:50)
[2021-09-10] MEDS: MULTIVITAMINS/MINERALS THERAP 1 TAB PO SCH (08:50)
[2021-09-10] MEDS: HYDROXYCHLOROQUINE 200 MG TAB PO SCH (08:51)
[2021-09-10] MEDS: allopurinoL 100 MG TAB PO SCH (08:51)
[2021-09-10] MEDS: SERTRALINE 100 MG TAB PO SCH (08:51)
[2021-09-10] MEDS: busPIRone 5 MG TAB PO SCH (08:51)
[2021-09-10] MEDS: cefTRIAXone SOD 1 GM in D5W MINI-BAG PLUS 50 ML IV SCH (12:23)
== END 2021-09-10 15:15 | disposition home health service (06) ==
LOC: M ED 14:59 → M ED INP 15:00 → ENRESERV 20:43 → M PCU 22:25
PROVIDERS: ADMIT Internal Medicine; ATTEND Internal Medicine
DX: R55 Syncope and collapse (principal); D62 Acute posthemorrhagic anemia; I49.8 Other specified cardiac arrhythmias; M96.841 Postprocedural hematoma of a musculoskeletal structure following other procedure; Z99.3 Dependence on wheelchair; M17.0 Bilateral primary osteoarthritis of knee; M16.0 Bilateral primary osteoarthritis of hip; I38 Endocarditis, valve unspecified; E03.9 Hypothyroidism, unspecified; M10.9 Gout, unspecified; K21.9 Gastro-esophageal reflux disease without esophagitis; I10 Essential (primary) hypertension; F32.9 Major depressive disorder, single episode, unspecified; F41.9 Anxiety disorder, unspecified; L92.9 Granulomatous disorder of the skin and subcutaneous tissue, unspecified; L98.2 Febrile neutrophilic dermatosis [Sweet]; Z98.84 Bariatric surgery status; Z79.899 Other long term (current) drug therapy; Z79.51 Long term (current) use of inhaled steroids; Z88.8 Allergy status to other drugs, medicaments and biological substances; Z88.1 Allergy status to other antibiotic agents
CPT/HCPCS: 36415; 36430; 70450; 71045; 71275; 74177; 80047; 80048; 80053; 81001; 82077; 82550; 82553; 82803; 83605; 83735; 84443; 84484; 85014; 85018; 85025; 85610; 85730; 86850; 86900; 86901; 86920; 87798; 93005; 93041; 96361; 96365; 96366; 96376; 97161; 97530; 99285; G0378; J0696; J3475; P9016; Q9967

== ENCOUNTER 2021-10-28 11:20 | Inpatient (IN) | payer MEDICARE, OTHER ==
[~2021-10-28] VITALS: Ht 165.1 cm; Wt 72.7 kg
[2021-10-28] MEDS: LEVOTHYROXINE 88MCG TABLET (0.088 MG) PO SCH (06:00)
[~2021-10-28 11:20] MED LIST changes: -D31000TA2 PO; +VITA100093 PO; +atenoloL 25 MG TAB PO SCH
[2021-10-28 12:57] LABS: BASO % 0.7 % (0.0-1.0); EOS # 0.2 10^3/uL (0.0-0.5); EOS % 3.9 % (0.0-3.0); HEMATOCRIT 33.9 % (36.0-47.0); LYMPH # 1.5 10^3/uL (1.5-5.0); MEAN CORPUSCULAR HEMOGLOBIN 30.6 pg (27.0-33.0); MEAN CORPUSCULAR HGB CONC 32.4 g/dl (32.0-36.5); MEAN CORPUSCULAR VOLUME 94.2 fl (80.0-96.0); MONO # 0.7 10^3/uL (0.0-0.8); MONO % 12.3 % (2.0-8.0); NEUTROPHILS # 3.4 10^3/uL (1.5-8.5); NEUTROPHILS % 56.6 % (36.0-66.0); PLATELET COUNT, AUTOMATED 296 10^3/uL (150-450); WHITE BLOOD COUNT 5.9 10^3/uL (4.0-10.0)
[2021-10-28 12:58] LABS: BASO # 0.1 10^3/uL (0.0-0.2); BASO % 0.8 % (0.0-1.0); EOS # 0.2 10^3/uL (0.0-0.5); EOS % 3.2 % (0.0-3.0); HEMATOCRIT 33.2 % (36.0-47.0); HEMOGLOBIN 10.7 g/dl (12.0-15.5); LYMPH # 1.5 10^3/uL (1.5-5.0); LYMPH % 25.6 % (24.0-44.0); MEAN CORPUSCULAR HEMOGLOBIN 30.7 pg (27.0-33.0); MEAN CORPUSCULAR HGB CONC 32.2 g/dl (32.0-36.5); MEAN CORPUSCULAR VOLUME 95.1 fl (80.0-96.0); MONO # 0.7 10^3/uL (0.0-0.8); MONO % 12.2 % (2.0-8.0); NEUTROPHILS # 3.4 10^3/uL (1.5-8.5); NEUTROPHILS % 57.7 % (36.0-66.0); PLATELET COUNT, AUTOMATED 303 10^3/uL (150-450); RED BLOOD COUNT 3.49 10^6/uL (4.00-5.40)
[2021-10-28] MEDS ORDERED: VANCOMYCIN HCL 1,000 MG, VIAL MATE ADAPTER 1 EACH in NS 250 ML IV ONE (13:15)
[2021-10-28] MEDS ORDERED: PIPERACILLIN/TAZOBACTAM SOD 3.375 GM in D5W MINI-BAG PLUS 50 ML IV ONE (13:15)
[2021-10-28] MEDS ORDERED: ATEN25TA PO (13:30)
[2021-10-28 13:32] LABS: ALBUMIN 2.7 GM/DL (3.2-5.2); BILIRUBIN,DIRECT 0.1 MG/DL (0.0-0.2); BILIRUBIN,TOTAL 0.3 MG/DL (0.2-1.0); TOTAL PROTEIN 5.7 GM/DL (6.4-8.2)
[2021-10-28 13:34] LABS: RSV AMPLIFICATION NEGATIVE (NEGATIVE)
[2021-10-28] MEDS ORDERED: SM CPOW PO (13:35)
[2021-10-28] MEDS ORDERED: HOME MED LIST COMPLETE! XX SCH (13:40)
[2021-10-28] MEDS ORDERED: ISOVUE-370 76% 100ML VIAL As Ordered ONE (13:54)
[2021-10-28] MEDS ORDERED: ACETAMINOPHEN TAB 650MG DOSE (2X325MG) PO PRN (15:20)
[2021-10-28] MEDS ORDERED: traZODone 50 MG TAB PO PRN (15:20)
[2021-10-28] MEDS ORDERED: ALBUTEROL 90 MCG/ACT 8GM HFA INHALER INH PRN (15:20)
[2021-10-28] MEDS ORDERED: IPRATROPIUM 0.5MG/ALBUTEROL 2.5MG INH SOL UD 3ML (DUONEB) INH PRN (15:20)
[2021-10-28] MEDS ORDERED: VANCOMYCIN HCL IV SCH (15:30)
[2021-10-28] MEDS ORDERED: FLUID PLACE HOLDER IV SCH (15:30)
[2021-10-28] MEDS: busPIRone 5 MG TAB PO SCH ×2 (16:00→20:07)
[2021-10-28 18:58] VITALS: BP 143/72
[2021-10-28] MEDS: allopurinoL 100 MG TAB PO SCH (19:05)
[2021-10-28] MEDS: SERTRALINE 100 MG TAB PO SCH (19:05)
[2021-10-28] MEDS: FAMOTIDINE 20 MG TAB PO SCH (19:06)
[2021-10-28] MEDS: PIPERACILLIN/TAZOBACTAM SOD 3.375 GM in D5W MINI-BAG PLUS 50 ML IV SCH (20:07)
[2021-10-28] MEDS: HYDROXYCHLOROQUINE 200 MG TAB PO SCH (20:08)
[2021-10-28] MEDS: VANCOMYCIN HCL 1,000 MG, VIAL MATE ADAPTER 1 EACH in NS 250 ML IV SCH (22:24)
[2021-10-29] VITALS (8 sets, daily range): BP systolic 124–153; BP diastolic 60–78
[2021-10-29] MEDS: PIPERACILLIN/TAZOBACTAM SOD 3.375 GM in D5W MINI-BAG PLUS 50 ML IV SCH ×4 (02:18→19:52)
[2021-10-29] MEDS: LEVOTHYROXINE 88MCG TABLET (0.088 MG) PO SCH (05:55)
[2021-10-29 06:14] LABS: BASO % 0.7 % (0.0-1.0); EOS # 0.3 10^3/uL (0.0-0.5); HEMATOCRIT 30.3 % (36.0-47.0); HEMOGLOBIN 9.8 g/dl (12.0-15.5); LYMPH # 1.7 10^3/uL (1.5-5.0); LYMPH % 28.7 % (24.0-44.0); MEAN CORPUSCULAR HEMOGLOBIN 30.6 pg (27.0-33.0); MEAN CORPUSCULAR HGB CONC 32.3 g/dl (32.0-36.5); MEAN CORPUSCULAR VOLUME 94.7 fl (80.0-96.0); MONO # 0.8 10^3/uL (0.0-0.8); MONO % 13.5 % (2.0-8.0); NEUTROPHILS % 51.4 % (36.0-66.0); PLATELET COUNT, AUTOMATED 297 10^3/uL (150-450); WHITE BLOOD COUNT 5.8 10^3/uL (4.0-10.0)
[2021-10-29 06:33] LABS: BLOOD UREA NITROGEN 20 MG/DL (7-18); CALCIUM LEVEL 8.7 MG/DL (8.8-10.2); CARBON DIOXIDE LEVEL 31 MEQ/L (21-32); CHLORIDE LEVEL 110 MEQ/L (98-107); CREATININE FOR GFR 0.96 MG/DL (0.55-1.30); GLOMERULAR FILTRATION RATE > 60.0 (>45); GLUCOSE, FASTING 83 MG/DL (70-100); MAGNESIUM LEVEL 2.2 MG/DL (1.8-2.4); POTASSIUM SERUM 4.5 MEQ/L (3.5-5.1); SODIUM LEVEL 144 MEQ/L (136-145)
[2021-10-29] MEDS: FAMOTIDINE 20 MG TAB PO SCH (08:59)
[2021-10-29] MEDS ORDERED: ATENOLOL 12.5MG PER 1/2 TABLET PO SCH (09:00)
[2021-10-29] MEDS: allopurinoL 100 MG TAB PO SCH (09:00)
[2021-10-29] MEDS: SERTRALINE 100 MG TAB PO SCH (09:00)
[2021-10-29] MEDS: busPIRone 5 MG TAB PO SCH ×3 (09:02→21:36)
[2021-10-29] MEDS: VANCOMYCIN HCL 1,000 MG, VIAL MATE ADAPTER 1 EACH in NS 250 ML IV SCH (09:07)
[2021-10-29] MEDS ORDERED: PILL CUTTER 1 EACH XX PRN (10:45)
[2021-10-29] MEDS ORDERED: NS 0.45% 500 ML IV ONE (12:10)
[2021-10-29] MEDS ORDERED: ONDANSETRON 4MG/2ML VIAL As Ordered ONE (12:16)
[2021-10-29] MEDS ORDERED: dexameTHASONE 4 MG/ML 1ML VIAL (J1100 PER 1MG) As Ordered ONE (12:16)
[2021-10-29] MEDS ORDERED: LIDOCAINE 2% 100MG/5ML SDV (FOR ANES.) As Ordered ONE (12:16)
[2021-10-29] MEDS ORDERED: propofoL 200 MG/20 ML VIAL As Ordered ONE (12:16)
[2021-10-29] MEDS ORDERED: fentaNYL 100 MCG/2 ML INJECTION As Ordered ONE (12:17)
[2021-10-29] MEDS ORDERED: MIDAZOLAM INJ 2MG/2ML VIAL (J2250 PER 1MG) As Ordered ONE (12:17)
[2021-10-29] MEDS ORDERED: LIDOCAINE 1% SDV 30ML VIAL As Ordered ONE (13:14)
[2021-10-29] MEDS ORDERED: BUPIVACAINE HCL 0.25% 30ML VIAL As Ordered ONE (13:15)
[2021-10-29] MEDS ORDERED: HEPARIN SOD (PORCINE) 5000UNITS/ML 1ML VIAL/SYRINGE As Ordered ONE (13:36)
[2021-10-29] MEDS ORDERED: GLYCOPYRROLATE INJ 0.2 MG/ML 2 ML VIAL As Ordered ONE (13:45)
[2021-10-29] MEDS ORDERED: METOCLOPRAMIDE INJ 10MG/2ML VIAL (J2765 PER 1) IV PRN (15:15)
[2021-10-29] MEDS ORDERED: ONDANSETRON 4MG/2ML VIAL IV PRN (15:15)
[2021-10-29] MEDS ORDERED: oxyCODONE 5MG TAB PO PRN (15:15)
[2021-10-29] MEDS ORDERED: LR 1,000 ML IV SCH (15:15)
[2021-10-29] MEDS: oxyCODONE 5MG TAB PO PRN ×3 (15:21→19:53)
[2021-10-29] MEDS: fentaNYL 100 MCG/2 ML INJECTION IV PRN ×4 (15:21→15:44)
[2021-10-29] MEDS ORDERED: ACETAMINOPHEN 500 MG TAB PO PRN (15:25)
[2021-10-29] MEDS ORDERED: HEPARIN SOD (PORCINE) 5000UNITS/ML 1ML VIAL/SYRINGE SQ SCH (16:00)
[2021-10-29] MEDS: ACYCLOVIR 200 MG CAPSULE PO SCH ×2 (16:38→21:36)
[2021-10-29] MEDS: HYDROXYCHLOROQUINE 200 MG TAB PO SCH (16:39)
[2021-10-29] MEDS: HEPARIN SOD (PORCINE) 5000UNITS/ML 1ML VIAL/SYRINGE SQ SCH (21:36)
[2021-10-30] VITALS (9 sets, daily range): BP systolic 102–129; BP diastolic 46–92; O2SAT 94–96
[2021-10-30] MEDS: PIPERACILLIN/TAZOBACTAM SOD 3.375 GM in D5W MINI-BAG PLUS 50 ML IV SCH ×4 (01:52→20:28)
[2021-10-30] MEDS ORDERED: VANCOMYCIN HCL 1,000 MG, VIAL MATE ADAPTER 1 EACH in NS 250 ML IV SCH (03:00)
[2021-10-30] MEDS: LEVOTHYROXINE 88MCG TABLET (0.088 MG) PO SCH (05:56)
[2021-10-30] MEDS: HEPARIN SOD (PORCINE) 5000UNITS/ML 1ML VIAL/SYRINGE SQ SCH ×3 (05:58→20:28)
[2021-10-30] MEDS: oxyCODONE 5MG TAB PO PRN ×2 (05:59→22:21)
[2021-10-30 07:27] LABS: BASO % 0.5 % (0.0-1.0); EOS % 0.1 % (0.0-3.0); HEMATOCRIT 29.6 % (36.0-47.0); HEMOGLOBIN 9.8 g/dl (12.0-15.5); LYMPH # 0.9 10^3/uL (1.5-5.0); LYMPH % 12.1 % (24.0-44.0); MEAN CORPUSCULAR HEMOGLOBIN 30.8 pg (27.0-33.0); MEAN CORPUSCULAR HGB CONC 33.1 g/dl (32.0-36.5); MEAN CORPUSCULAR VOLUME 93.1 fl (80.0-96.0); MONO # 0.6 10^3/uL (0.0-0.8); MONO % 7.9 % (2.0-8.0); NEUTROPHILS # 6.1 10^3/uL (1.5-8.5); NEUTROPHILS % 78.6 % (36.0-66.0); PLATELET COUNT, AUTOMATED 334 10^3/uL (150-450); RED BLOOD COUNT 3.18 10^6/uL (4.00-5.40); WHITE BLOOD COUNT 7.8 10^3/uL (4.0-10.0)
[2021-10-30 07:54] LABS: C REACTIVE PROTEIN QUANTITATIV 2.47 MG/DL (0.00-0.30); CALCIUM LEVEL 8.2 MG/DL (8.8-10.2); CREATININE FOR GFR 1.01 MG/DL (0.55-1.30); GLOMERULAR FILTRATION RATE 58.6 (>45); POTASSIUM SERUM 4.1 MEQ/L (3.5-5.1)
[2021-10-30] MEDS ORDERED: ATENOLOL 12.5MG PER 1/2 TABLET PO SCH (09:00)
[2021-10-30] MEDS: atenoloL 25 MG TAB PO SCH (09:00)
[2021-10-30] MEDS: SERTRALINE 100 MG TAB PO SCH (09:30)
[2021-10-30] MEDS: HYDROXYCHLOROQUINE 200 MG TAB PO SCH (09:30)
[2021-10-30] MEDS: ACYCLOVIR 200 MG CAPSULE PO SCH ×4 (09:30→20:28)
[2021-10-30] MEDS: busPIRone 5 MG TAB PO SCH ×3 (09:30→20:28)
[2021-10-30] MEDS: FAMOTIDINE 20 MG TAB PO SCH (09:30)
[2021-10-30] MEDS: allopurinoL 100 MG TAB PO SCH (09:31)
[2021-10-30] MEDS: MIRALAX *UNIT DOSE* 17GM PACKET PO PRN (14:04)
[2021-10-31] MEDS: PIPERACILLIN/TAZOBACTAM SOD 3.375 GM in D5W MINI-BAG PLUS 50 ML IV SCH ×2 (01:36→08:03)
[2021-10-31] MEDS ORDERED: VANCOMYCIN HCL 1,000 MG, VIAL MATE ADAPTER 1 EACH in NS 250 ML IV SCH (03:00)
[2021-10-31] MEDS: oxyCODONE 5MG TAB PO PRN ×2 (04:30→21:18)
[2021-10-31] MEDS: LEVOTHYROXINE 88MCG TABLET (0.088 MG) PO SCH (05:33)
[2021-10-31] MEDS: HEPARIN SOD (PORCINE) 5000UNITS/ML 1ML VIAL/SYRINGE SQ SCH ×3 (05:36→21:17)
[2021-10-31 05:45] VITALS: BP 103/56
[2021-10-31 05:59] LABS: BASO # 0.1 10^3/uL (0.0-0.2); BASO % 0.9 % (0.0-1.0); EOS # 0.3 10^3/uL (0.0-0.5); EOS % 3.7 % (0.0-3.0); HEMATOCRIT 27.7 % (36.0-47.0); HEMOGLOBIN 9.1 g/dl (12.0-15.5); LYMPH # 3.1 10^3/uL (1.5-5.0); LYMPH % 41.6 % (24.0-44.0); MEAN CORPUSCULAR HEMOGLOBIN 31.1 pg (27.0-33.0); MEAN CORPUSCULAR HGB CONC 32.9 g/dl (32.0-36.5); MEAN CORPUSCULAR VOLUME 94.5 fl (80.0-96.0); MONO # 0.6 10^3/uL (0.0-0.8); MONO % 8.4 % (2.0-8.0); NEUTROPHILS # 3.3 10^3/uL (1.5-8.5); NEUTROPHILS % 44.2 % (36.0-66.0); PLATELET COUNT, AUTOMATED 308 10^3/uL (150-450); RED BLOOD COUNT 2.93 10^6/uL (4.00-5.40); WHITE BLOOD COUNT 7.5 10^3/uL (4.0-10.0)
[2021-10-31 06:21] LABS: CALCIUM LEVEL 8.2 MG/DL (8.8-10.2); CREATININE FOR GFR 1.24 MG/DL (0.55-1.30); GLOMERULAR FILTRATION RATE 46.2 (>45); MAGNESIUM LEVEL 2.1 MG/DL (1.8-2.4); POTASSIUM SERUM 4.1 MEQ/L (3.5-5.1)
[2021-10-31] MEDS: atenoloL 25 MG TAB PO SCH (08:03)
[2021-10-31] MEDS: SERTRALINE 100 MG TAB PO SCH (08:04)
[2021-10-31] MEDS: FAMOTIDINE 20 MG TAB PO SCH (08:05)
[2021-10-31] MEDS: allopurinoL 100 MG TAB PO SCH (08:05)
[2021-10-31] MEDS: HYDROXYCHLOROQUINE 200 MG TAB PO SCH (08:05)
[2021-10-31] MEDS: busPIRone 5 MG TAB PO SCH ×3 (08:05→21:17)
[2021-10-31] MEDS: ACYCLOVIR 200 MG CAPSULE PO SCH ×4 (08:05→21:17)
[2021-10-31 09:00] VITALS: O2SAT 98
[2021-10-31] MEDS: MIRALAX *UNIT DOSE* 17GM PACKET PO PRN (09:35)
[2021-10-31] MEDS ORDERED: NS 500 ML IV ONE (10:20)
[2021-10-31] MEDS: LevoFLOXacin 750 MG TABLET PO SCH (11:19)
[2021-10-31 14:00] VITALS: BP 127/65
[2021-10-31 21:15] VITALS: O2SAT 96
[2021-11-01] MEDS: oxyCODONE 5MG TAB PO PRN (02:29)
[2021-11-01] MEDS: LEVOTHYROXINE 88MCG TABLET (0.088 MG) PO SCH (05:27)
[2021-11-01] MEDS: HEPARIN SOD (PORCINE) 5000UNITS/ML 1ML VIAL/SYRINGE SQ SCH ×3 (05:27→21:49)
[2021-11-01] MEDS: LevoFLOXacin 750 MG TABLET PO SCH (05:27)
[2021-11-01 05:30] VITALS: BP 112/54
[2021-11-01 06:17] LABS: BASO # 0.1 10^3/uL (0.0-0.2); BASO % 0.7 % (0.0-1.0); EOS # 0.3 10^3/uL (0.0-0.5); EOS % 4.9 % (0.0-3.0); HEMATOCRIT 27.7 % (36.0-47.0); LYMPH % 44.4 % (24.0-44.0); MEAN CORPUSCULAR HEMOGLOBIN 30.6 pg (27.0-33.0); MEAN CORPUSCULAR HGB CONC 32.5 g/dl (32.0-36.5); MEAN CORPUSCULAR VOLUME 94.2 fl (80.0-96.0); MONO # 0.7 10^3/uL (0.0-0.8); MONO % 10.2 % (2.0-8.0); NEUTROPHILS # 2.5 10^3/uL (1.5-8.5); PLATELET COUNT, AUTOMATED 304 10^3/uL (150-450); RED BLOOD COUNT 2.94 10^6/uL (4.00-5.40); WHITE BLOOD COUNT 6.7 10^3/uL (4.0-10.0)
[2021-11-01 06:45] LABS: CALCIUM LEVEL 8.3 MG/DL (8.8-10.2); CREATININE FOR GFR 1.08 MG/DL (0.55-1.30); GLOMERULAR FILTRATION RATE 54.2 (>45); MAGNESIUM LEVEL 2.1 MG/DL (1.8-2.4); POTASSIUM SERUM 4.4 MEQ/L (3.5-5.1)
[2021-11-01] MEDS: busPIRone 5 MG TAB PO SCH ×3 (08:57→21:49)
[2021-11-01] MEDS: SERTRALINE 100 MG TAB PO SCH (08:57)
[2021-11-01] MEDS: HYDROXYCHLOROQUINE 200 MG TAB PO SCH (08:57)
[2021-11-01] MEDS: allopurinoL 100 MG TAB PO SCH (08:57)
[2021-11-01] MEDS: FAMOTIDINE 20 MG TAB PO SCH (08:57)
[2021-11-01] MEDS: ACYCLOVIR 200 MG CAPSULE PO SCH ×4 (08:57→21:49)
[2021-11-01] MEDS: atenoloL 25 MG TAB PO SCH ×2 (08:58→08:59)
[2021-11-01 09:00] VITALS: O2SAT 96
[2021-11-01 22:00] VITALS: O2SAT 94
[2021-11-01] MEDS: HYDROmorphone 2 MG TAB PO PRN (22:07)
[2021-11-02] MEDS ORDERED: PINK BISMUTH SUSP 524MG/30ML ORAL SYRINGE PO ONE (03:00)
[2021-11-02] MEDS: LEVOTHYROXINE 88MCG TABLET (0.088 MG) PO SCH (05:36)
[2021-11-02] MEDS: LevoFLOXacin 750 MG TABLET PO SCH (05:36)
[2021-11-02] MEDS: HEPARIN SOD (PORCINE) 5000UNITS/ML 1ML VIAL/SYRINGE SQ SCH ×3 (05:37→21:02)
[2021-11-02 06:00] VITALS: BP 121/55
[2021-11-02] MEDS: atenoloL 25 MG TAB PO SCH (09:00)
[2021-11-02] MEDS ORDERED: LACTOBACILLUS ACIDOPHILUS CAP (BACID) PO SCH (09:00)
[2021-11-02] MEDS: FAMOTIDINE 20 MG TAB PO SCH (09:04)
[2021-11-02] MEDS: ACYCLOVIR 200 MG CAPSULE PO SCH ×4 (09:04→21:03)
[2021-11-02] MEDS: busPIRone 5 MG TAB PO SCH ×3 (09:04→21:03)
[2021-11-02] MEDS: SERTRALINE 100 MG TAB PO SCH (09:05)
[2021-11-02] MEDS: allopurinoL 100 MG TAB PO SCH (09:06)
[2021-11-02] MEDS: HYDROXYCHLOROQUINE 200 MG TAB PO SCH (09:06)
[2021-11-02] MEDS: VITAMIN B COMPLEX/VIT C CAP PO SCH (17:03)
[2021-11-02] MEDS: VITAMIN D 1,000 INTERNATIONAL UNITS TABLET PO SCH (17:03)
[2021-11-02] MEDS: MULTIVITAMINS/MINERALS THERAP 1 TAB PO SCH (17:03)
[2021-11-02] MEDS: LACTOBACILLUS ACIDOPHILUS CAP (BACID) PO SCH (21:02)
[2021-11-02] MEDS: HYDROmorphone 2 MG TAB PO PRN (23:09)
[2021-11-03 06:00] VITALS: BP 121/55
[2021-11-03] MEDS: LevoFLOXacin 750 MG TABLET PO SCH (06:10)
[2021-11-03] MEDS: LEVOTHYROXINE 88MCG TABLET (0.088 MG) PO SCH (06:10)
[2021-11-03] MEDS: HEPARIN SOD (PORCINE) 5000UNITS/ML 1ML VIAL/SYRINGE SQ SCH ×3 (06:11→20:52)
[2021-11-03 06:38] LABS: BASO # 0.1 10^3/uL (0.0-0.2); BASO % 0.9 % (0.0-1.0); EOS # 0.3 10^3/uL (0.0-0.5); EOS % 4.2 % (0.0-3.0); HEMATOCRIT 29.6 % (36.0-47.0); HEMOGLOBIN 9.7 g/dl (12.0-15.5); LYMPH # 2.8 10^3/uL (1.5-5.0); LYMPH % 36.7 % (24.0-44.0); MEAN CORPUSCULAR HEMOGLOBIN 30.7 pg (27.0-33.0); MEAN CORPUSCULAR HGB CONC 32.8 g/dl (32.0-36.5); MEAN CORPUSCULAR VOLUME 93.7 fl (80.0-96.0); MONO # 0.8 10^3/uL (0.0-0.8); MONO % 9.9 % (2.0-8.0); NEUTROPHILS # 3.5 10^3/uL (1.5-8.5); NEUTROPHILS % 45.6 % (36.0-66.0); PLATELET COUNT, AUTOMATED 317 10^3/uL (150-450); RED BLOOD COUNT 3.16 10^6/uL (4.00-5.40); WHITE BLOOD COUNT 7.7 10^3/uL (4.0-10.0)
[2021-11-03 07:14] LABS: CALCIUM LEVEL 8.6 MG/DL (8.8-10.2); CREATININE FOR GFR 1.1 MG/DL (0.55-1.30); GLOMERULAR FILTRATION RATE 53.1 (>45); POTASSIUM SERUM 4.3 MEQ/L (3.5-5.1)
[2021-11-03] MEDS: FAMOTIDINE 20 MG TAB PO SCH (09:31)
[2021-11-03] MEDS: ACYCLOVIR 200 MG CAPSULE PO SCH ×2 (09:32→14:11)
[2021-11-03] MEDS: VITAMIN B COMPLEX/VIT C CAP PO SCH (09:32)
[2021-11-03] MEDS: busPIRone 5 MG TAB PO SCH ×3 (09:32→20:53)
[2021-11-03] MEDS: VITAMIN D 1,000 INTERNATIONAL UNITS TABLET PO SCH (09:32)
[2021-11-03] MEDS: MULTIVITAMINS/MINERALS THERAP 1 TAB PO SCH (09:32)
[2021-11-03] MEDS: allopurinoL 100 MG TAB PO SCH (09:32)
[2021-11-03] MEDS: LACTOBACILLUS ACIDOPHILUS CAP (BACID) PO SCH ×2 (09:32→20:53)
[2021-11-03] MEDS: HYDROXYCHLOROQUINE 200 MG TAB PO SCH (09:32)
[2021-11-03] MEDS: SERTRALINE 100 MG TAB PO SCH (09:33)
[2021-11-03] MEDS: atenoloL 25 MG TAB PO SCH (09:44)
[2021-11-03] MEDS ORDERED: BIOT1TAB PO (19:56)
[2021-11-03] MEDS: BIOTIN 10000 MCG PO SCH (20:52)
[2021-11-03] MEDS: FIBER-CON 625 MG TAB PO SCH (20:52)
[2021-11-03] MEDS: LIDOCAINE 5% (LIDODERM) PATCH TD SCH (20:53)
[2021-11-04 06:00] VITALS: BP 118/53
[2021-11-04] MEDS: HEPARIN SOD (PORCINE) 5000UNITS/ML 1ML VIAL/SYRINGE SQ SCH ×3 (06:03→20:57)
[2021-11-04] MEDS: LevoFLOXacin 750 MG TABLET PO SCH (06:03)
[2021-11-04] MEDS: LEVOTHYROXINE 88MCG TABLET (0.088 MG) PO SCH (06:03)
[2021-11-04 06:28] LABS: BASO # 0.1 10^3/uL (0.0-0.2); BASO % 1.1 % (0.0-1.0); EOS # 0.3 10^3/uL (0.0-0.5); EOS % 4.4 % (0.0-3.0); HEMATOCRIT 30.6 % (36.0-47.0); LYMPH # 2.6 10^3/uL (1.5-5.0); MEAN CORPUSCULAR HEMOGLOBIN 31.1 pg (27.0-33.0); MEAN CORPUSCULAR HGB CONC 32.7 g/dl (32.0-36.5); MONO # 0.7 10^3/uL (0.0-0.8); NEUTROPHILS # 3.5 10^3/uL (1.5-8.5); NEUTROPHILS % 47.7 % (36.0-66.0); PLATELET COUNT, AUTOMATED 310 10^3/uL (150-450); RED BLOOD COUNT 3.22 10^6/uL (4.00-5.40); WHITE BLOOD COUNT 7.3 10^3/uL (4.0-10.0)
[2021-11-04 06:49] LABS: CREATININE FOR GFR 1.01 MG/DL (0.55-1.30); GLOMERULAR FILTRATION RATE 58.6 (>45); MAGNESIUM LEVEL 1.9 MG/DL (1.8-2.4)
[2021-11-04] MEDS: HYDROXYCHLOROQUINE 200 MG TAB PO SCH (09:58)
[2021-11-04] MEDS: busPIRone 5 MG TAB PO SCH ×3 (09:58→20:56)
[2021-11-04] MEDS: MULTIVITAMINS/MINERALS THERAP 1 TAB PO SCH (09:58)
[2021-11-04] MEDS: SERTRALINE 100 MG TAB PO SCH (09:58)
[2021-11-04] MEDS: BIOTIN 10000 MCG PO SCH (09:58)
[2021-11-04] MEDS: allopurinoL 100 MG TAB PO SCH (09:58)
[2021-11-04] MEDS: VITAMIN B COMPLEX/VIT C CAP PO SCH (09:58)
[2021-11-04] MEDS: **NOTE PATIENT COMMENT** MISC XX SCH (09:59)
[2021-11-04] MEDS: FAMOTIDINE 20 MG TAB PO SCH (09:59)
[2021-11-04] MEDS: FIBER-CON 625 MG TAB PO SCH ×2 (09:59→20:56)
[2021-11-04] MEDS: VITAMIN D 1,000 INTERNATIONAL UNITS TABLET PO SCH (09:59)
[2021-11-04] MEDS: atenoloL 25 MG TAB PO SCH (10:02)
[2021-11-04] MEDS: LACTOBACILLUS ACIDOPHILUS CAP (BACID) PO SCH ×4 (10:07→20:56)
[2021-11-04 14:00] VITALS: BP 125/68
[2021-11-04] MEDS ORDERED: HYDROmorphone 2 MG TAB PO PRN (17:45)
[2021-11-04 18:00] VITALS: BP 130/66
[2021-11-04] MEDS: LIDOCAINE 5% (LIDODERM) PATCH TD SCH (20:56)
[2021-11-04 21:00] VITALS: O2SAT 95
[2021-11-05] MEDS: LevoFLOXacin 750 MG TABLET PO SCH (05:56)
[2021-11-05] MEDS: LEVOTHYROXINE 88MCG TABLET (0.088 MG) PO SCH (05:56)
[2021-11-05] MEDS: HEPARIN SOD (PORCINE) 5000UNITS/ML 1ML VIAL/SYRINGE SQ SCH ×3 (05:56→21:28)
[2021-11-05 06:03] VITALS: BP 119/54
[2021-11-05 06:19] LABS: BASO # 0.1 10^3/uL (0.0-0.2); BASO % 1.1 % (0.0-1.0); EOS # 0.3 10^3/uL (0.0-0.5); EOS % 3.5 % (0.0-3.0); HEMATOCRIT 29.3 % (36.0-47.0); HEMOGLOBIN 9.7 g/dl (12.0-15.5); LYMPH # 2.8 10^3/uL (1.5-5.0); MEAN CORPUSCULAR HEMOGLOBIN 31.5 pg (27.0-33.0); MEAN CORPUSCULAR HGB CONC 33.1 g/dl (32.0-36.5); MEAN CORPUSCULAR VOLUME 95.1 fl (80.0-96.0); MONO # 0.8 10^3/uL (0.0-0.8); MONO % 10.1 % (2.0-8.0); NEUTROPHILS # 3.5 10^3/uL (1.5-8.5); NEUTROPHILS % 46.6 % (36.0-66.0); PLATELET COUNT, AUTOMATED 286 10^3/uL (150-450); RED BLOOD COUNT 3.08 10^6/uL (4.00-5.40); WHITE BLOOD COUNT 7.5 10^3/uL (4.0-10.0)
[2021-11-05 06:47] LABS: CALCIUM LEVEL 8.4 MG/DL (8.8-10.2); CREATININE FOR GFR 0.99 MG/DL (0.55-1.30); GLOMERULAR FILTRATION RATE 59.9 (>45); POTASSIUM SERUM 4.2 MEQ/L (3.5-5.1)
[2021-11-05 08:00] VITALS: BP 128/86
[2021-11-05] MEDS: VITAMIN B COMPLEX/VIT C CAP PO SCH (08:56)
[2021-11-05] MEDS: FIBER-CON 625 MG TAB PO SCH ×2 (08:56→21:29)
[2021-11-05] MEDS: VITAMIN D 1,000 INTERNATIONAL UNITS TABLET PO SCH (08:58)
[2021-11-05] MEDS: busPIRone 5 MG TAB PO SCH ×3 (08:58→21:29)
[2021-11-05] MEDS: MULTIVITAMINS/MINERALS THERAP 1 TAB PO SCH (08:58)
[2021-11-05] MEDS: atenoloL 25 MG TAB PO SCH (08:58)
[2021-11-05] MEDS: LACTOBACILLUS ACIDOPHILUS CAP (BACID) PO SCH ×4 (08:58→21:29)
[2021-11-05] MEDS: HYDROXYCHLOROQUINE 200 MG TAB PO SCH (08:59)
[2021-11-05] MEDS: allopurinoL 100 MG TAB PO SCH (08:59)
[2021-11-05] MEDS: FAMOTIDINE 20 MG TAB PO SCH (08:59)
[2021-11-05] MEDS: SERTRALINE 100 MG TAB PO SCH (08:59)
[2021-11-05] MEDS: BIOTIN 10000 MCG PO SCH (09:00)
[2021-11-05] MEDS: **NOTE PATIENT COMMENT** MISC XX SCH (09:24)
[2021-11-05 11:35] VITALS: BP 132/74
[2021-11-05 12:00] VITALS: BP 132/74
[2021-11-05 13:12] LABS: C REACTIVE PROTEIN QUANTITATIV 0.5 MG/DL (0.00-0.30)
[2021-11-05 14:00] VITALS: BP 113/67
[2021-11-05] MEDS: LIDOCAINE 5% (LIDODERM) PATCH TD SCH (21:28)
[2021-11-06 06:27] LABS: BASO # 0.1 10^3/uL (0.0-0.2); BASO % 1.3 % (0.0-1.0); EOS # 0.3 10^3/uL (0.0-0.5); EOS % 4.2 % (0.0-3.0); HEMATOCRIT 30.7 % (36.0-47.0); HEMOGLOBIN 9.9 g/dl (12.0-15.5); LYMPH # 2.7 10^3/uL (1.5-5.0); LYMPH % 40.2 % (24.0-44.0); MEAN CORPUSCULAR HEMOGLOBIN 30.7 pg (27.0-33.0); MEAN CORPUSCULAR HGB CONC 32.2 g/dl (32.0-36.5); MONO # 0.7 10^3/uL (0.0-0.8); MONO % 10.7 % (2.0-8.0); NEUTROPHILS # 2.8 10^3/uL (1.5-8.5); NEUTROPHILS % 42.3 % (36.0-66.0); PLATELET COUNT, AUTOMATED 292 10^3/uL (150-450); RED BLOOD COUNT 3.23 10^6/uL (4.00-5.40); WHITE BLOOD COUNT 6.7 10^3/uL (4.0-10.0)
[2021-11-06 06:35] LABS: BLOOD UREA NITROGEN 21 MG/DL (7-18); CALCIUM LEVEL 8.5 MG/DL (8.8-10.2); CARBON DIOXIDE LEVEL 31 MEQ/L (21-32); CHLORIDE LEVEL 114 MEQ/L (98-107); CREATININE FOR GFR 0.95 MG/DL (0.55-1.30); GLOMERULAR FILTRATION RATE > 60.0 (>45); GLUCOSE, FASTING 85 MG/DL (70-100); POTASSIUM SERUM 4.2 MEQ/L (3.5-5.1); SODIUM LEVEL 146 MEQ/L (136-145)
[2021-11-06 06:38] VITALS: BP 112/62
[2021-11-06] MEDS: HEPARIN SOD (PORCINE) 5000UNITS/ML 1ML VIAL/SYRINGE SQ SCH ×3 (06:40→20:51)
[2021-11-06] MEDS: LevoFLOXacin 750 MG TABLET PO SCH (06:41)
[2021-11-06] MEDS: LACTOBACILLUS ACIDOPHILUS CAP (BACID) PO SCH ×4 (06:41→20:50)
[2021-11-06] MEDS: LEVOTHYROXINE 88MCG TABLET (0.088 MG) PO SCH (06:41)
[2021-11-06] MEDS: FAMOTIDINE 20 MG TAB PO SCH (09:55)
[2021-11-06] MEDS: FIBER-CON 625 MG TAB PO SCH ×2 (09:55→20:50)
[2021-11-06] MEDS: allopurinoL 100 MG TAB PO SCH (09:55)
[2021-11-06] MEDS: SERTRALINE 100 MG TAB PO SCH (09:55)
[2021-11-06] MEDS: MULTIVITAMINS/MINERALS THERAP 1 TAB PO SCH (09:55)
[2021-11-06] MEDS: busPIRone 5 MG TAB PO SCH ×3 (09:55→20:50)
[2021-11-06] MEDS: VITAMIN B COMPLEX/VIT C CAP PO SCH (09:55)
[2021-11-06] MEDS: VITAMIN D 1,000 INTERNATIONAL UNITS TABLET PO SCH (09:55)
[2021-11-06] MEDS: HYDROXYCHLOROQUINE 200 MG TAB PO SCH (09:55)
[2021-11-06] MEDS: BIOTIN 10000 MCG PO SCH (09:55)
[2021-11-06] MEDS: **NOTE PATIENT COMMENT** MISC XX SCH (09:56)
[2021-11-06] MEDS: atenoloL 25 MG TAB PO SCH (09:56)
[2021-11-06 10:37] LABS: CLOSTRIDIUM DIFFICILE PCR NEGATIVE (NEGATIVE)
[2021-11-06 14:00] VITALS: BP 124/69
[2021-11-06 20:45] VITALS: BP 122/60
[2021-11-06] MEDS: LIDOCAINE 5% (LIDODERM) PATCH TD SCH (20:50)
[2021-11-07] MEDS: HEPARIN SOD (PORCINE) 5000UNITS/ML 1ML VIAL/SYRINGE SQ SCH ×3 (05:25→21:01)
[2021-11-07] MEDS: LEVOTHYROXINE 88MCG TABLET (0.088 MG) PO SCH (05:25)
[2021-11-07 05:59] VITALS: BP 121/63
[2021-11-07 06:51] LABS: BASO # 0.1 10^3/uL (0.0-0.2); BASO % 1.1 % (0.0-1.0); EOS # 0.3 10^3/uL (0.0-0.5); EOS % 3.9 % (0.0-3.0); HEMATOCRIT 30.5 % (36.0-47.0); HEMOGLOBIN 9.9 g/dl (12.0-15.5); LYMPH # 2.8 10^3/uL (1.5-5.0); MEAN CORPUSCULAR HEMOGLOBIN 31.3 pg (27.0-33.0); MEAN CORPUSCULAR HGB CONC 32.5 g/dl (32.0-36.5); MEAN CORPUSCULAR VOLUME 96.5 fl (80.0-96.0); MONO # 0.6 10^3/uL (0.0-0.8); NEUTROPHILS # 2.6 10^3/uL (1.5-8.5); NEUTROPHILS % 39.9 % (36.0-66.0); PLATELET COUNT, AUTOMATED 257 10^3/uL (150-450); RED BLOOD COUNT 3.16 10^6/uL (4.00-5.40); WHITE BLOOD COUNT 6.4 10^3/uL (4.0-10.0)
[2021-11-07 07:25] LABS: BLOOD UREA NITROGEN 23 MG/DL (7-18); CALCIUM LEVEL 8.2 MG/DL (8.8-10.2); CARBON DIOXIDE LEVEL 28 MEQ/L (21-32); CHLORIDE LEVEL 115 MEQ/L (98-107); CREATININE FOR GFR 0.93 MG/DL (0.55-1.30); GLOMERULAR FILTRATION RATE > 60.0 (>45); GLUCOSE, FASTING 76 MG/DL (70-100); SODIUM LEVEL 146 MEQ/L (136-145)
[2021-11-07] MEDS: BIOTIN 10000 MCG PO SCH (10:08)
[2021-11-07] MEDS: VITAMIN B COMPLEX/VIT C CAP PO SCH (10:08)
[2021-11-07] MEDS: HYDROXYCHLOROQUINE 200 MG TAB PO SCH (10:08)
[2021-11-07] MEDS: MULTIVITAMINS/MINERALS THERAP 1 TAB PO SCH (10:08)
[2021-11-07] MEDS: SERTRALINE 100 MG TAB PO SCH (10:08)
[2021-11-07] MEDS: LACTOBACILLUS ACIDOPHILUS CAP (BACID) PO SCH ×4 (10:08→21:02)
[2021-11-07] MEDS: VITAMIN D 1,000 INTERNATIONAL UNITS TABLET PO SCH (10:09)
[2021-11-07] MEDS: FIBER-CON 625 MG TAB PO SCH ×2 (10:09→21:02)
[2021-11-07] MEDS: atenoloL 25 MG TAB PO SCH (10:10)
[2021-11-07] MEDS: FAMOTIDINE 20 MG TAB PO SCH (10:10)
[2021-11-07] MEDS: allopurinoL 100 MG TAB PO SCH (10:10)
[2021-11-07] MEDS: busPIRone 5 MG TAB PO SCH ×3 (10:10→21:01)
[2021-11-07] MEDS: **NOTE PATIENT COMMENT** MISC XX SCH (10:11)
[2021-11-07 14:00] VITALS: BP 130/61
[2021-11-07 18:49] VITALS: BP 131/65
[2021-11-07] MEDS: LIDOCAINE 5% (LIDODERM) PATCH TD SCH (21:01)
[2021-11-07 22:18] VITALS: BP 100/55
[2021-11-08 02:17] VITALS: BP 100/55
[2021-11-08] MEDS: LEVOTHYROXINE 88MCG TABLET (0.088 MG) PO SCH (05:27)
[2021-11-08] MEDS: HEPARIN SOD (PORCINE) 5000UNITS/ML 1ML VIAL/SYRINGE SQ SCH ×3 (05:27→20:39)
[2021-11-08 05:59] LABS: BASO # 0.1 10^3/uL (0.0-0.2); BASO % 0.9 % (0.0-1.0); EOS # 0.2 10^3/uL (0.0-0.5); EOS % 3.3 % (0.0-3.0); HEMATOCRIT 30.5 % (36.0-47.0); LYMPH % 45.1 % (24.0-44.0); MEAN CORPUSCULAR HEMOGLOBIN 31.7 pg (27.0-33.0); MEAN CORPUSCULAR HGB CONC 32.8 g/dl (32.0-36.5); MEAN CORPUSCULAR VOLUME 96.8 fl (80.0-96.0); MONO # 0.7 10^3/uL (0.0-0.8); MONO % 10.3 % (2.0-8.0); NEUTROPHILS # 2.6 10^3/uL (1.5-8.5); NEUTROPHILS % 39.6 % (36.0-66.0); PLATELET COUNT, AUTOMATED 243 10^3/uL (150-450); RED BLOOD COUNT 3.15 10^6/uL (4.00-5.40); WHITE BLOOD COUNT 6.6 10^3/uL (4.0-10.0)
[2021-11-08 06:08] VITALS: BP 103/47
[2021-11-08 06:27] LABS: BLOOD UREA NITROGEN 28 MG/DL (7-18); CALCIUM LEVEL 8.6 MG/DL (8.8-10.2); CARBON DIOXIDE LEVEL 31 MEQ/L (21-32); CHLORIDE LEVEL 114 MEQ/L (98-107); CREATININE FOR GFR 0.85 MG/DL (0.55-1.30); GLOMERULAR FILTRATION RATE > 60.0 (>45); GLUCOSE, FASTING 83 MG/DL (70-100); POTASSIUM SERUM 4.3 MEQ/L (3.5-5.1); SODIUM LEVEL 146 MEQ/L (136-145)
[2021-11-08] MEDS: MULTIVITAMINS/MINERALS THERAP 1 TAB PO SCH (08:03)
[2021-11-08] MEDS: LACTOBACILLUS ACIDOPHILUS CAP (BACID) PO SCH ×4 (08:03→20:39)
[2021-11-08] MEDS: HYDROXYCHLOROQUINE 200 MG TAB PO SCH (08:03)
[2021-11-08] MEDS: SERTRALINE 100 MG TAB PO SCH (08:03)
[2021-11-08] MEDS: allopurinoL 100 MG TAB PO SCH (08:04)
[2021-11-08] MEDS: FAMOTIDINE 20 MG TAB PO SCH (08:04)
[2021-11-08] MEDS: FIBER-CON 625 MG TAB PO SCH ×2 (08:06→20:40)
[2021-11-08] MEDS: VITAMIN D 1,000 INTERNATIONAL UNITS TABLET PO SCH (08:07)
[2021-11-08] MEDS: BIOTIN 10000 MCG PO SCH (08:07)
[2021-11-08] MEDS: busPIRone 5 MG TAB PO SCH ×3 (08:07→20:39)
[2021-11-08] MEDS: **NOTE PATIENT COMMENT** MISC XX SCH (08:15)
[2021-11-08] MEDS: atenoloL 25 MG TAB PO SCH (08:24)
[2021-11-08] MEDS: VITAMIN B COMPLEX/VIT C CAP PO SCH (10:11)
[2021-11-08] MEDS: LIDOCAINE 5% (LIDODERM) PATCH TD SCH (20:40)
[2021-11-08 20:55] VITALS: BP 113/57
[2021-11-09] MEDS: LEVOTHYROXINE 88MCG TABLET (0.088 MG) PO SCH (05:17)
[2021-11-09] MEDS: HEPARIN SOD (PORCINE) 5000UNITS/ML 1ML VIAL/SYRINGE SQ SCH ×3 (05:18→21:41)
[2021-11-09 05:35] VITALS: BP 118/58
[2021-11-09 06:50] LABS: BASO # 0.1 10^3/uL (0.0-0.2); BASO % 1.2 % (0.0-1.0); EOS # 0.2 10^3/uL (0.0-0.5); EOS % 4.1 % (0.0-3.0); HEMATOCRIT 29.7 % (36.0-47.0); LYMPH # 2.6 10^3/uL (1.5-5.0); LYMPH % 45.3 % (24.0-44.0); MEAN CORPUSCULAR HEMOGLOBIN 32.8 pg (27.0-33.0); MEAN CORPUSCULAR HGB CONC 33.7 g/dl (32.0-36.5); MEAN CORPUSCULAR VOLUME 97.4 fl (80.0-96.0); MONO # 0.6 10^3/uL (0.0-0.8); MONO % 10.5 % (2.0-8.0); NEUTROPHILS # 2.2 10^3/uL (1.5-8.5); PLATELET COUNT, AUTOMATED 230 10^3/uL (150-450); RED BLOOD COUNT 3.05 10^6/uL (4.00-5.40); WHITE BLOOD COUNT 5.8 10^3/uL (4.0-10.0)
[2021-11-09 07:16] LABS: BLOOD UREA NITROGEN 25 MG/DL (7-18); CALCIUM LEVEL 8.3 MG/DL (8.8-10.2); CARBON DIOXIDE LEVEL 30 MEQ/L (21-32); CHLORIDE LEVEL 116 MEQ/L (98-107); CREATININE FOR GFR 0.77 MG/DL (0.55-1.30); GLOMERULAR FILTRATION RATE > 60.0 (>45); GLUCOSE, FASTING 79 MG/DL (70-100); POTASSIUM SERUM 4.1 MEQ/L (3.5-5.1); SODIUM LEVEL 149 MEQ/L (136-145)
[2021-11-09] MEDS: LACTOBACILLUS ACIDOPHILUS CAP (BACID) PO SCH ×4 (09:14→21:41)
[2021-11-09] MEDS: FIBER-CON 625 MG TAB PO SCH ×2 (10:08→21:00)
[2021-11-09] MEDS: HYDROXYCHLOROQUINE 200 MG TAB PO SCH (10:08)
[2021-11-09] MEDS: SERTRALINE 100 MG TAB PO SCH (10:08)
[2021-11-09] MEDS: VITAMIN B COMPLEX/VIT C CAP PO SCH (10:08)
[2021-11-09] MEDS: FAMOTIDINE 20 MG TAB PO SCH (10:08)
[2021-11-09] MEDS: busPIRone 5 MG TAB PO SCH ×3 (10:08→21:43)
[2021-11-09] MEDS: allopurinoL 100 MG TAB PO SCH (10:08)
[2021-11-09] MEDS: MULTIVITAMINS/MINERALS THERAP 1 TAB PO SCH (10:08)
[2021-11-09] MEDS: VITAMIN D 1,000 INTERNATIONAL UNITS TABLET PO SCH (10:08)
[2021-11-09] MEDS: BIOTIN 10000 MCG PO SCH (10:09)
[2021-11-09] MEDS: **NOTE PATIENT COMMENT** MISC XX SCH (10:09)
[2021-11-09] MEDS: atenoloL 25 MG TAB PO SCH (10:13)
[2021-11-09] MEDS: LIDOCAINE 5% (LIDODERM) PATCH TD SCH (21:44)
[2021-11-10] MEDS: HEPARIN SOD (PORCINE) 5000UNITS/ML 1ML VIAL/SYRINGE SQ SCH ×3 (05:51→21:02)
[2021-11-10] MEDS: LEVOTHYROXINE 88MCG TABLET (0.088 MG) PO SCH (05:51)
[2021-11-10 06:00] VITALS: BP 125/52
[2021-11-10] MEDS: LACTOBACILLUS ACIDOPHILUS CAP (BACID) PO SCH ×4 (08:13→21:04)
[2021-11-10] MEDS: VITAMIN B COMPLEX/VIT C CAP PO SCH (08:13)
[2021-11-10] MEDS: busPIRone 5 MG TAB PO SCH ×3 (08:13→21:04)
[2021-11-10] MEDS: FIBER-CON 625 MG TAB PO SCH ×2 (08:13→21:00)
[2021-11-10] MEDS: allopurinoL 100 MG TAB PO SCH (08:14)
[2021-11-10] MEDS: HYDROXYCHLOROQUINE 200 MG TAB PO SCH (08:14)
[2021-11-10] MEDS: MULTIVITAMINS/MINERALS THERAP 1 TAB PO SCH (08:14)
[2021-11-10] MEDS: FAMOTIDINE 20 MG TAB PO SCH (08:14)
[2021-11-10] MEDS: VITAMIN D 1,000 INTERNATIONAL UNITS TABLET PO SCH (08:14)
[2021-11-10] MEDS: BIOTIN 10000 MCG PO SCH (08:14)
[2021-11-10] MEDS: SERTRALINE 100 MG TAB PO SCH (08:14)
[2021-11-10] MEDS: **NOTE PATIENT COMMENT** MISC XX SCH (08:20)
[2021-11-10] MEDS: atenoloL 25 MG TAB PO SCH (08:20)
[2021-11-10] MEDS: LIDOCAINE 5% (LIDODERM) PATCH TD SCH (21:04)
[2021-11-11] MEDS: LEVOTHYROXINE 88MCG TABLET (0.088 MG) PO SCH (05:43)
[2021-11-11] MEDS: HEPARIN SOD (PORCINE) 5000UNITS/ML 1ML VIAL/SYRINGE SQ SCH ×3 (05:43→21:57)
[2021-11-11 06:00] VITALS: BP 116/52
[2021-11-11] MEDS: LACTOBACILLUS ACIDOPHILUS CAP (BACID) PO SCH ×4 (08:33→21:56)
[2021-11-11] MEDS: VITAMIN D 1,000 INTERNATIONAL UNITS TABLET PO SCH (08:33)
[2021-11-11] MEDS: FAMOTIDINE 20 MG TAB PO SCH (08:33)
[2021-11-11] MEDS: FIBER-CON 625 MG TAB PO SCH ×2 (08:33→21:57)
[2021-11-11] MEDS: allopurinoL 100 MG TAB PO SCH (08:33)
[2021-11-11] MEDS: SERTRALINE 100 MG TAB PO SCH (08:33)
[2021-11-11] MEDS: VITAMIN B COMPLEX/VIT C CAP PO SCH (08:33)
[2021-11-11] MEDS: MULTIVITAMINS/MINERALS THERAP 1 TAB PO SCH (08:34)
[2021-11-11] MEDS: busPIRone 5 MG TAB PO SCH ×3 (08:34→21:56)
[2021-11-11] MEDS: HYDROXYCHLOROQUINE 200 MG TAB PO SCH (08:34)
[2021-11-11] MEDS: atenoloL 25 MG TAB PO SCH (08:35)
[2021-11-11] MEDS: **NOTE PATIENT COMMENT** MISC XX SCH (08:35)
[2021-11-11] MEDS: BIOTIN 10000 MCG PO SCH (08:36)
[2021-11-11] MEDS: LIDOCAINE 5% (LIDODERM) PATCH TD SCH (21:57)
[2021-11-12 05:28] VITALS: BP 106/49
[2021-11-12] MEDS: HEPARIN SOD (PORCINE) 5000UNITS/ML 1ML VIAL/SYRINGE SQ SCH ×3 (05:32→21:35)
[2021-11-12] MEDS: LEVOTHYROXINE 88MCG TABLET (0.088 MG) PO SCH (05:32)
[2021-11-12 06:09] LABS: BASO # 0.1 10^3/uL (0.0-0.2); EOS # 0.2 10^3/uL (0.0-0.5); EOS % 3.8 % (0.0-3.0); HEMATOCRIT 28.8 % (36.0-47.0); HEMOGLOBIN 9.5 g/dl (12.0-15.5); LYMPH # 2.7 10^3/uL (1.5-5.0); LYMPH % 46.7 % (24.0-44.0); MONO # 0.7 10^3/uL (0.0-0.8); MONO % 11.6 % (2.0-8.0); NEUTROPHILS # 2.1 10^3/uL (1.5-8.5); NEUTROPHILS % 36.6 % (36.0-66.0); PLATELET COUNT, AUTOMATED 183 10^3/uL (150-450); RED BLOOD COUNT 2.97 10^6/uL (4.00-5.40); WHITE BLOOD COUNT 5.8 10^3/uL (4.0-10.0)
[2021-11-12 06:37] LABS: BLOOD UREA NITROGEN 21 MG/DL (7-18); CALCIUM LEVEL 8.2 MG/DL (8.8-10.2); CARBON DIOXIDE LEVEL 30 MEQ/L (21-32); CHLORIDE LEVEL 113 MEQ/L (98-107); CREATININE FOR GFR 0.72 MG/DL (0.55-1.30); GLOMERULAR FILTRATION RATE > 60.0 (>45); GLUCOSE, FASTING 74 MG/DL (70-100); SODIUM LEVEL 145 MEQ/L (136-145)
[2021-11-12] MEDS: atenoloL 25 MG TAB PO SCH (09:00)
[2021-11-12] MEDS: allopurinoL 100 MG TAB PO SCH (09:31)
[2021-11-12] MEDS: LACTOBACILLUS ACIDOPHILUS CAP (BACID) PO SCH ×4 (09:31→21:34)
[2021-11-12] MEDS: FIBER-CON 625 MG TAB PO SCH ×2 (09:31→21:34)
[2021-11-12] MEDS: FAMOTIDINE 20 MG TAB PO SCH (09:32)
[2021-11-12] MEDS: MULTIVITAMINS/MINERALS THERAP 1 TAB PO SCH (09:32)
[2021-11-12] MEDS: VITAMIN B COMPLEX/VIT C CAP PO SCH (09:32)
[2021-11-12] MEDS: SERTRALINE 100 MG TAB PO SCH (09:32)
[2021-11-12] MEDS: HYDROXYCHLOROQUINE 200 MG TAB PO SCH (09:32)
[2021-11-12] MEDS: VITAMIN D 1,000 INTERNATIONAL UNITS TABLET PO SCH (09:32)
[2021-11-12] MEDS: busPIRone 5 MG TAB PO SCH ×3 (09:32→21:34)
[2021-11-12] MEDS: BIOTIN 10000 MCG PO SCH (09:34)
[2021-11-12] MEDS: **NOTE PATIENT COMMENT** MISC XX SCH (09:34)
[2021-11-12] MEDS: ANALGESIC BALM CRM 3OZ TOP SCH ×2 (14:14→21:35)
[2021-11-12] MEDS: LIDOCAINE 5% (LIDODERM) PATCH TD SCH (21:35)
[2021-11-13 06:00] VITALS: BP 106/50
[2021-11-13] MEDS: LEVOTHYROXINE 88MCG TABLET (0.088 MG) PO SCH (06:24)
[2021-11-13] MEDS: HEPARIN SOD (PORCINE) 5000UNITS/ML 1ML VIAL/SYRINGE SQ SCH ×3 (06:25→21:51)
[2021-11-13] MEDS: HYDROXYCHLOROQUINE 200 MG TAB PO SCH (08:13)
[2021-11-13] MEDS: allopurinoL 100 MG TAB PO SCH (08:13)
[2021-11-13] MEDS: FAMOTIDINE 20 MG TAB PO SCH (08:13)
[2021-11-13] MEDS: FIBER-CON 625 MG TAB PO SCH ×2 (08:13→21:51)
[2021-11-13] MEDS: SERTRALINE 100 MG TAB PO SCH (08:14)
[2021-11-13] MEDS: VITAMIN B COMPLEX/VIT C CAP PO SCH (08:14)
[2021-11-13] MEDS: VITAMIN D 1,000 INTERNATIONAL UNITS TABLET PO SCH (08:14)
[2021-11-13] MEDS: LACTOBACILLUS ACIDOPHILUS CAP (BACID) PO SCH ×4 (08:15→21:51)
[2021-11-13] MEDS: MULTIVITAMINS/MINERALS THERAP 1 TAB PO SCH (08:15)
[2021-11-13] MEDS: busPIRone 5 MG TAB PO SCH ×3 (08:15→21:51)
[2021-11-13] MEDS: atenoloL 25 MG TAB PO SCH (08:15)
[2021-11-13] MEDS: BIOTIN 10000 MCG PO SCH (08:16)
[2021-11-13] MEDS: ANALGESIC BALM CRM 3OZ TOP SCH ×2 (08:17→21:52)
[2021-11-13] MEDS: **NOTE PATIENT COMMENT** MISC XX SCH (09:00)
[2021-11-13] MEDS: LIDOCAINE 5% (LIDODERM) PATCH TD SCH (21:52)
[2021-11-14 06:00] VITALS: BP 114/50
[2021-11-14] MEDS: HEPARIN SOD (PORCINE) 5000UNITS/ML 1ML VIAL/SYRINGE SQ SCH ×3 (06:19→21:25)
[2021-11-14] MEDS: LEVOTHYROXINE 88MCG TABLET (0.088 MG) PO SCH (06:19)
[2021-11-14] MEDS: FAMOTIDINE 20 MG TAB PO SCH (08:48)
[2021-11-14] MEDS: MULTIVITAMINS/MINERALS THERAP 1 TAB PO SCH (08:48)
[2021-11-14] MEDS: VITAMIN B COMPLEX/VIT C CAP PO SCH (08:49)
[2021-11-14] MEDS: SERTRALINE 100 MG TAB PO SCH (08:49)
[2021-11-14] MEDS: HYDROXYCHLOROQUINE 200 MG TAB PO SCH (08:49)
[2021-11-14] MEDS: allopurinoL 100 MG TAB PO SCH (08:49)
[2021-11-14] MEDS: LACTOBACILLUS ACIDOPHILUS CAP (BACID) PO SCH ×4 (08:49→21:24)
[2021-11-14] MEDS: FIBER-CON 625 MG TAB PO SCH ×2 (08:49→21:24)
[2021-11-14] MEDS: VITAMIN D 1,000 INTERNATIONAL UNITS TABLET PO SCH (08:50)
[2021-11-14] MEDS: busPIRone 5 MG TAB PO SCH ×3 (08:50→21:24)
[2021-11-14] MEDS: atenoloL 25 MG TAB PO SCH (08:52)
[2021-11-14] MEDS: ANALGESIC BALM CRM 3OZ TOP SCH ×2 (08:53→21:25)
[2021-11-14] MEDS: **NOTE PATIENT COMMENT** MISC XX SCH (08:53)
[2021-11-14] MEDS: BIOTIN 10000 MCG PO SCH (08:53)
[2021-11-14] MEDS: LIDOCAINE 5% (LIDODERM) PATCH TD SCH (21:26)
[2021-11-15] MEDS: LEVOTHYROXINE 88MCG TABLET (0.088 MG) PO SCH (05:40)
[2021-11-15] MEDS: HEPARIN SOD (PORCINE) 5000UNITS/ML 1ML VIAL/SYRINGE SQ SCH (05:41)
[2021-11-15 06:00] VITALS: BP 119/52
[2021-11-15] MEDS: atenoloL 25 MG TAB PO SCH (08:07)
[2021-11-15] MEDS: ANALGESIC BALM CRM 3OZ TOP SCH ×2 (08:10→22:23)
[2021-11-15] MEDS: **NOTE PATIENT COMMENT** MISC XX SCH (08:10)
[2021-11-15] MEDS: VITAMIN B COMPLEX/VIT C CAP PO SCH (08:11)
[2021-11-15] MEDS: busPIRone 5 MG TAB PO SCH ×3 (08:11→22:22)
[2021-11-15] MEDS: FIBER-CON 625 MG TAB PO SCH ×2 (08:11→22:23)
[2021-11-15] MEDS: VITAMIN D 1,000 INTERNATIONAL UNITS TABLET PO SCH (08:11)
[2021-11-15] MEDS: HYDROXYCHLOROQUINE 200 MG TAB PO SCH (08:11)
[2021-11-15] MEDS: LACTOBACILLUS ACIDOPHILUS CAP (BACID) PO SCH ×4 (08:11→22:22)
[2021-11-15] MEDS: FAMOTIDINE 20 MG TAB PO SCH (08:11)
[2021-11-15] MEDS: SERTRALINE 100 MG TAB PO SCH (08:11)
[2021-11-15] MEDS: MULTIVITAMINS/MINERALS THERAP 1 TAB PO SCH (08:11)
[2021-11-15] MEDS: allopurinoL 100 MG TAB PO SCH (08:11)
[2021-11-15] MEDS: BIOTIN 10000 MCG PO SCH (08:12)
[2021-11-15] MEDS: LIDOCAINE 5% (LIDODERM) PATCH TD SCH (22:23)
[2021-11-16 05:47] VITALS: BP 101/52
[2021-11-16] MEDS: LEVOTHYROXINE 88MCG TABLET (0.088 MG) PO SCH (06:13)
[2021-11-16 08:20] VITALS: BP 131/63
[2021-11-16] MEDS: atenoloL 25 MG TAB PO SCH (08:51)
[2021-11-16] MEDS: FIBER-CON 625 MG TAB PO SCH ×2 (09:17→22:04)
[2021-11-16] MEDS: VITAMIN B COMPLEX/VIT C CAP PO SCH (09:17)
[2021-11-16] MEDS: VITAMIN D 1,000 INTERNATIONAL UNITS TABLET PO SCH (09:17)
[2021-11-16] MEDS: busPIRone 5 MG TAB PO SCH ×3 (09:17→22:03)
[2021-11-16] MEDS: MULTIVITAMINS/MINERALS THERAP 1 TAB PO SCH (09:17)
[2021-11-16] MEDS: LACTOBACILLUS ACIDOPHILUS CAP (BACID) PO SCH ×4 (09:17→22:03)
[2021-11-16] MEDS: **NOTE PATIENT COMMENT** MISC XX SCH (09:18)
[2021-11-16] MEDS: ANALGESIC BALM CRM 3OZ TOP SCH ×2 (09:18→22:04)
[2021-11-16] MEDS: BIOTIN 10000 MCG PO SCH (09:18)
[2021-11-16] MEDS: HYDROXYCHLOROQUINE 200 MG TAB PO SCH (10:47)
[2021-11-16] MEDS: allopurinoL 100 MG TAB PO SCH (10:48)
[2021-11-16] MEDS: FAMOTIDINE 20 MG TAB PO SCH (10:49)
[2021-11-16] MEDS: SERTRALINE 100 MG TAB PO SCH (10:49)
[2021-11-16 13:30] VITALS: BP 118/64
[2021-11-16] MEDS: LIDOCAINE 5% (LIDODERM) PATCH TD SCH (22:04)
[2021-11-17 05:59] VITALS: BP 104/57
[2021-11-17] MEDS: LEVOTHYROXINE 88MCG TABLET (0.088 MG) PO SCH (06:00)
[2021-11-17] MEDS: busPIRone 5 MG TAB PO SCH ×3 (08:57→21:57)
[2021-11-17] MEDS: FIBER-CON 625 MG TAB PO SCH ×2 (08:57→21:57)
[2021-11-17] MEDS: allopurinoL 100 MG TAB PO SCH (08:57)
[2021-11-17] MEDS: FAMOTIDINE 20 MG TAB PO SCH (08:58)
[2021-11-17] MEDS: SERTRALINE 100 MG TAB PO SCH (08:58)
[2021-11-17] MEDS: BIOTIN 10000 MCG PO SCH (08:58)
[2021-11-17] MEDS: HYDROXYCHLOROQUINE 200 MG TAB PO SCH (08:58)
[2021-11-17] MEDS: LACTOBACILLUS ACIDOPHILUS CAP (BACID) PO SCH ×4 (08:58→21:57)
[2021-11-17] MEDS: VITAMIN B COMPLEX/VIT C CAP PO SCH (08:58)
[2021-11-17] MEDS: VITAMIN D 1,000 INTERNATIONAL UNITS TABLET PO SCH (08:58)
[2021-11-17] MEDS: MULTIVITAMINS/MINERALS THERAP 1 TAB PO SCH (08:58)
[2021-11-17] MEDS: ANALGESIC BALM CRM 3OZ TOP SCH ×2 (08:59→21:58)
[2021-11-17] MEDS: atenoloL 25 MG TAB PO SCH (08:59)
[2021-11-17] MEDS: **NOTE PATIENT COMMENT** MISC XX SCH (08:59)
[2021-11-17] MEDS: LIDOCAINE 5% (LIDODERM) PATCH TD SCH (21:57)
[2021-11-18 06:01] VITALS: BP 105/59
[2021-11-18] MEDS: LEVOTHYROXINE 88MCG TABLET (0.088 MG) PO SCH (06:06)
[2021-11-18] MEDS: atenoloL 25 MG TAB PO SCH (09:00)
[2021-11-18] MEDS: ANALGESIC BALM CRM 3OZ TOP SCH ×2 (09:15→20:49)
[2021-11-18] MEDS: BIOTIN 10000 MCG PO SCH (09:16)
[2021-11-18] MEDS: FIBER-CON 625 MG TAB PO SCH ×2 (09:16→20:48)
[2021-11-18] MEDS: FAMOTIDINE 20 MG TAB PO SCH (09:16)
[2021-11-18] MEDS: VITAMIN D 1,000 INTERNATIONAL UNITS TABLET PO SCH (09:16)
[2021-11-18] MEDS: VITAMIN B COMPLEX/VIT C CAP PO SCH (09:16)
[2021-11-18] MEDS: SERTRALINE 100 MG TAB PO SCH (09:16)
[2021-11-18] MEDS: LACTOBACILLUS ACIDOPHILUS CAP (BACID) PO SCH ×4 (09:16→20:48)
[2021-11-18] MEDS: allopurinoL 100 MG TAB PO SCH (09:17)
[2021-11-18] MEDS: HYDROXYCHLOROQUINE 200 MG TAB PO SCH (09:17)
[2021-11-18] MEDS: MULTIVITAMINS/MINERALS THERAP 1 TAB PO SCH (09:17)
[2021-11-18] MEDS: busPIRone 5 MG TAB PO SCH ×3 (09:17→20:48)
[2021-11-18] MEDS: **NOTE PATIENT COMMENT** MISC XX SCH (09:17)
[2021-11-18] MEDS: LIDOCAINE 5% (LIDODERM) PATCH TD SCH (20:49)
[2021-11-19] MEDS: LEVOTHYROXINE 88MCG TABLET (0.088 MG) PO SCH (05:50)
[2021-11-19 06:00] VITALS: BP 110/53
[2021-11-19] MEDS: FAMOTIDINE 20 MG TAB PO SCH (09:50)
[2021-11-19] MEDS: SERTRALINE 100 MG TAB PO SCH (09:50)
[2021-11-19] MEDS: busPIRone 5 MG TAB PO SCH ×3 (09:50→20:39)
[2021-11-19] MEDS: FIBER-CON 625 MG TAB PO SCH ×2 (09:50→20:39)
[2021-11-19] MEDS: MULTIVITAMINS/MINERALS THERAP 1 TAB PO SCH (09:50)
[2021-11-19] MEDS: VITAMIN D 1,000 INTERNATIONAL UNITS TABLET PO SCH (09:50)
[2021-11-19] MEDS: allopurinoL 100 MG TAB PO SCH (09:51)
[2021-11-19] MEDS: HYDROXYCHLOROQUINE 200 MG TAB PO SCH (09:51)
[2021-11-19] MEDS: VITAMIN B COMPLEX/VIT C CAP PO SCH (09:51)
[2021-11-19] MEDS: atenoloL 25 MG TAB PO SCH (09:52)
[2021-11-19] MEDS: **NOTE PATIENT COMMENT** MISC XX SCH (09:55)
[2021-11-19] MEDS: BIOTIN 10000 MCG PO SCH (09:55)
[2021-11-19] MEDS: ANALGESIC BALM CRM 3OZ TOP SCH ×2 (09:56→20:39)
[2021-11-19] MEDS: LACTOBACILLUS ACIDOPHILUS CAP (BACID) PO SCH ×4 (09:58→20:39)
[2021-11-19] MEDS ORDERED: DOCUSATE SODIUM 100MG CAPSULE PO PRN (11:20)
[2021-11-19] MEDS: LIDOCAINE 5% (LIDODERM) PATCH TD SCH (20:39)
[2021-11-20] MEDS: LEVOTHYROXINE 88MCG TABLET (0.088 MG) PO SCH (05:46)
[2021-11-20 06:26] VITALS: BP 118/57
[2021-11-20] MEDS: busPIRone 5 MG TAB PO SCH (08:43)
[2021-11-20] MEDS: FIBER-CON 625 MG TAB PO SCH (08:43)
[2021-11-20] MEDS: MULTIVITAMINS/MINERALS THERAP 1 TAB PO SCH (08:43)
[2021-11-20] MEDS: allopurinoL 100 MG TAB PO SCH (08:43)
[2021-11-20] MEDS: LACTOBACILLUS ACIDOPHILUS CAP (BACID) PO SCH ×2 (08:43→11:50)
[2021-11-20] MEDS: SERTRALINE 100 MG TAB PO SCH (08:43)
[2021-11-20] MEDS: VITAMIN B COMPLEX/VIT C CAP PO SCH (08:44)
[2021-11-20] MEDS: FAMOTIDINE 20 MG TAB PO SCH (08:44)
[2021-11-20] MEDS: HYDROXYCHLOROQUINE 200 MG TAB PO SCH (08:44)
[2021-11-20] MEDS: VITAMIN D 1,000 INTERNATIONAL UNITS TABLET PO SCH (08:44)
[2021-11-20] MEDS: ANALGESIC BALM CRM 3OZ TOP SCH (08:52)
[2021-11-20] MEDS: BIOTIN 10000 MCG PO SCH (08:52)
[2021-11-20 09:00] VITALS: BP 112/52
[2021-11-20] MEDS: atenoloL 25 MG TAB PO SCH (09:00)
[2021-11-20] MEDS: **NOTE PATIENT COMMENT** MISC XX SCH (09:00)
[2021-11-20] MEDS ORDERED: ATEN25TA PO (09:33)
[2021-11-20] MEDS ORDERED: RISATAB3 PO (09:33)
[2021-11-20] MEDS ORDERED: MUSCCRE9 TOP (09:33)
[2021-11-20] MEDS ORDERED: FIBE62TA PO (09:33)
[2021-11-20] MEDS ORDERED: COLA100C5 PO (09:33)
[2021-11-20] MEDS ORDERED: LIDO5OIN19 TOP (13:07)
== END 2021-11-20 14:41 | disposition home health service (06) | DRG 988 ==
LOC: EDBD 11:20 → M ED 11:20 → CMPBEDREQ 13:14 → M ED INP 14:10 → ENRESERV 17:58 → M MSPAV 18:45
PROVIDERS: ADMIT Family Medicine; ATTEND Family Medicine
PROC: 0WBFXZZ Excision of Abdominal Wall, External Approach (ICD-10-PCS; principal; 2021-11-03)
PROC: 0H97XZZ Drainage of Abdomen Skin, External Approach (ICD-10-PCS; 2021-11-03)
DX: T81.31XA Disruption of external operation (surgical) wound, not elsewhere classified, initial encounter (principal); L02.211 Cutaneous abscess of abdominal wall; T81.49XA Infection following a procedure, other surgical site, initial encounter; E87.0 Hyperosmolality and hypernatremia; E03.9 Hypothyroidism, unspecified; J45.909 Unspecified asthma, uncomplicated; F32.A Depression, unspecified; F41.9 Anxiety disorder, unspecified; K21.9 Gastro-esophageal reflux disease without esophagitis; D64.9 Anemia, unspecified; M10.9 Gout, unspecified; I10 Essential (primary) hypertension; M16.0 Bilateral primary osteoarthritis of hip; M17.0 Bilateral primary osteoarthritis of knee; M70.71 Other bursitis of hip, right hip; L30.8 Other specified dermatitis; B95.5 Unspecified streptococcus as the cause of diseases classified elsewhere; L92.9 Granulomatous disorder of the skin and subcutaneous tissue, unspecified; I49.8 Other specified cardiac arrhythmias; R19.7 Diarrhea, unspecified; G47.00 Insomnia, unspecified; K59.09 Other constipation; M70.72 Other bursitis of hip, left hip; R06.1 Stridor; Z98.84 Bariatric surgery status; Z90.49 Acquired absence of other specified parts of digestive tract; Z98.41 Cataract extraction status, right eye; Z98.42 Cataract extraction status, left eye; Z79.899 Other long term (current) drug therapy; Z88.1 Allergy status to other antibiotic agents; Z88.8 Allergy status to other drugs, medicaments and biological substances; Y83.8 Other surgical procedures as the cause of abnormal reaction of the patient, or of later complication, without mention of misadventure at the time of the procedure

== ENCOUNTER → 2021-12-02 | Outpatient (REF) | payer MEDICARE, OTHER ==
[~2021-12-02] MED LIST changes: +BIOT1TAB PO; +COLA100C5 PO; +FIBE62TA PO; +LIDO5OIN19 TOP; +MUSCCRE9 TOP; +RISATAB3 PO; +SM CPOW PO; -atenoloL 25 MG TAB PO SCH
[2021-12-02 12:47] LABS: BASO # 0.1 10^3/uL (0.0-0.2); BASO % 1.1 % (0.0-1.0); EOS # 0.4 10^3/uL (0.0-0.5); EOS % 6.4 % (0.0-3.0); HEMATOCRIT 35.7 % (36.0-47.0); HEMOGLOBIN 11.3 g/dl (12.0-15.5); LYMPH # 1.8 10^3/uL (1.5-5.0); LYMPH % 32.7 % (24.0-44.0); MEAN CORPUSCULAR HEMOGLOBIN 31.7 pg (27.0-33.0); MEAN CORPUSCULAR HGB CONC 31.7 g/dl (32.0-36.5); MEAN CORPUSCULAR VOLUME 100.3 fl (80.0-96.0); MONO # 0.5 10^3/uL (0.0-0.8); MONO % 8.6 % (2.0-8.0); NEUTROPHILS # 2.8 10^3/uL (1.5-8.5); NEUTROPHILS % 50.8 % (36.0-66.0); PLATELET COUNT, AUTOMATED 185 10^3/uL (150-450); RED BLOOD COUNT 3.56 10^6/uL (4.00-5.40); WHITE BLOOD COUNT 5.6 10^3/uL (4.0-10.0)
[2021-12-02 13:12] LABS: ALBUMIN 3.2 GM/DL (3.2-5.2); ALT/SGPT 25 U/L (12-78); BILIRUBIN,TOTAL 0.4 MG/DL (0.2-1.0); BLOOD UREA NITROGEN 19 MG/DL (7-18); CALCIUM LEVEL 8.8 MG/DL (8.8-10.2); CARBON DIOXIDE LEVEL 31 MEQ/L (21-32); CHLORIDE LEVEL 110 MEQ/L (98-107); CHOLESTEROL LEVEL 137 MG/DL (<200); CHOLESTEROL RISK RATIO 2.044 (<5); CREATININE FOR GFR 0.74 MG/DL (0.55-1.30); GLOMERULAR FILTRATION RATE > 60.0 (>45); GLUCOSE, FASTING 70 MG/DL (70-100); HDL CHOLESTEROL 67 MG/DL (>40); IRON (FE) 98 UG/DL (50-170); LDL CHOLESTEROL 56 MG/DL (<100); NON-HDL-C 70 MG/DL; PERCENT SATURATION 43.8 % (13.2-45.0); SODIUM LEVEL 143 MEQ/L (136-145); TOTAL IRON BINDING CAPACITY 224 UG/DL (250-450); TOTAL PROTEIN 5.8 GM/DL (6.4-8.2); TRIGLYCERIDES LEVEL 69 MG/DL (<150)
[2021-12-02 13:18] LABS: FOLATE 23.8 NG/ML; TOTAL 25(OH) VITAMIN D 45.8 NG/ML (30.0-100.0)
[2021-12-03 17:37] LABS: VITAMIN B12 LEVEL 746 PG/ML
== END ==
LOC: M SFHCLERA 12:23 → M SHH 12:23
PROVIDERS: ATTEND Student in an Organized Health Care Education/Training Program
DX: Z98.84 Bariatric surgery status (principal); E78.00 Pure hypercholesterolemia, unspecified; D50.9 Iron deficiency anemia, unspecified

== ENCOUNTER → 2022-01-14 | Outpatient (CLI) | payer MEDICARE, OTHER | LOC: M WHC 06:38 | PROVIDERS: ATTEND Plastic Surgery Surgery of the Hand | DX: R22.9 Localized swelling, mass and lump, unspecified (principal) ==

== ENCOUNTER → 2022-03-27 | Outpatient (CLI) | payer MEDICARE, OTHER | LOC: M LABSMTC 09:14 | PROVIDERS: ATTEND Anesthesiology | DX: Z11.52 Encounter for screening for COVID-19 (principal) ==

== ENCOUNTER 2022-03-31 09:38 | Day surgery (SDC) | payer MEDICARE, OTHER ==
[~2022-03-31] VITALS: Ht 165.1 cm; Wt 77.6 kg
[~2022-03-31 09:38] MED LIST changes: +NS 1,000 ML IV ONE
[2022-03-31] MEDS ORDERED: propofoL 200 MG/20 ML VIAL As Ordered ONE (12:05)
[2022-03-31] MEDS ORDERED: LIDOCAINE 2% 100MG/5ML SDV (FOR ANES.) As Ordered ONE (12:05)
[2022-03-31 13:12] VITALS: BP 121/56
== END 2022-03-31 13:10 | disposition home or self-care (01) ==
LOC: M OPP 09:38
PROVIDERS: ATTEND Internal Medicine Gastroenterology
DX: K63.5 Polyp of colon (principal); K64.8 Other hemorrhoids; K64.4 Residual hemorrhoidal skin tags; Z86.010 Personal history of colon polyps; Z98.0 Intestinal bypass and anastomosis status; K21.00 Gastro-esophageal reflux disease with esophagitis, without bleeding; G47.33 Obstructive sleep apnea (adult) (pediatric); I10 Essential (primary) hypertension; I95.1 Orthostatic hypotension; E03.9 Hypothyroidism, unspecified; D50.9 Iron deficiency anemia, unspecified; G43.909 Migraine, unspecified, not intractable, without status migrainosus; F32.9 Major depressive disorder, single episode, unspecified; F41.9 Anxiety disorder, unspecified; Z79.51 Long term (current) use of inhaled steroids; Z79.899 Other long term (current) drug therapy; Z88.0 Allergy status to penicillin; Z88.8 Allergy status to other drugs, medicaments and biological substances

== ENCOUNTER → 2022-07-17 | Outpatient (REF) | payer MEDICARE, OTHER ==
[~2022-07-17] MED LIST changes: -NS 1,000 ML IV ONE
[2022-07-17 19:56] LABS: RSV AMPLIFICATION NEGATIVE (NEGATIVE)
== END ==
LOC: M SFHCPLAZ 16:42
PROVIDERS: ATTEND Physician Assistant
DX: R68.89 Other general symptoms and signs (principal)

== ENCOUNTER 2022-08-06 07:43 | Outpatient (RCR) | payer MEDICARE, OTHER | END 2022-08-09 | LOC: M PT 07:43 | PROVIDERS: ATTEND Physician Assistant | DX: M50.30 Other cervical disc degeneration, unspecified cervical region (principal); M47.892 Other spondylosis, cervical region ==

== ENCOUNTER → 2022-09-09 | Outpatient (RCR) | payer MEDICARE, OTHER | LOC: M PT 08-12 10:06 | PROVIDERS: ATTEND Physician Assistant | DX: M50.30 Other cervical disc degeneration, unspecified cervical region (principal); M47.892 Other spondylosis, cervical region ==

== ENCOUNTER → 2022-09-24 | Outpatient (CLI) | payer MEDICAID, MEDICARE | LOC: M PLALAB 12:00 | PROVIDERS: ATTEND Internal Medicine | DX: Z79.899 Other long term (current) drug therapy (principal) ==

== ENCOUNTER → 2023-05-22 | Outpatient (CLI) | payer MEDICARE, MEDICAID ==
[~2023-05-22] MED LIST changes: -HYDR200T3 PO; +HYDR200T46 PO
== END ==
LOC: M PAIN 08:00
PROVIDERS: ATTEND Nurse Practitioner Family
DX: M54.2 Cervicalgia (principal); G89.29 Other chronic pain; I10 Essential (primary) hypertension; E03.9 Hypothyroidism, unspecified; J45.909 Unspecified asthma, uncomplicated; M10.9 Gout, unspecified; K21.9 Gastro-esophageal reflux disease without esophagitis; F32.A Depression, unspecified; M17.11 Unilateral primary osteoarthritis, right knee; M70.71 Other bursitis of hip, right hip; M70.72 Other bursitis of hip, left hip; Z79.890 Hormone replacement therapy; Z79.899 Other long term (current) drug therapy; Z88.1 Allergy status to other antibiotic agents; Z88.6 Allergy status to analgesic agent; Z88.8 Allergy status to other drugs, medicaments and biological substances; Z91.048 Other nonmedicinal substance allergy status

== ENCOUNTER → 2023-06-15 | Outpatient (CLI) | payer MEDICARE, MEDICAID | LOC: M WHC 07:22 | PROVIDERS: ATTEND Physician Assistant | DX: Z12.31 Encounter for screening mammogram for malignant neoplasm of breast (principal); M81.0 Age-related osteoporosis without current pathological fracture ==

== ENCOUNTER → 2023-06-17 | Outpatient (CLI) | payer MEDICARE, MEDICAID ==
[2023-06-17 10:42] LABS: BASO # 0.1 10^3/uL (0.0-0.2); BASO % 0.9 % (0.0-1.0); EOS # 0.2 10^3/uL (0.0-0.5); EOS % 2.5 % (0.0-3.0); HEMATOCRIT 41.9 % (36.0-47.0); HEMOGLOBIN 13.8 g/dl (12.0-15.5); LYMPH # 2.3 10^3/uL (1.5-5.0); LYMPH % 26.7 % (24.0-44.0); MEAN CORPUSCULAR HEMOGLOBIN 30.9 pg (27.0-33.0); MEAN CORPUSCULAR HGB CONC 32.9 g/dl (32.0-36.5); MEAN CORPUSCULAR VOLUME 93.7 fl (80.0-96.0); MONO # 0.7 10^3/uL (0.0-0.8); MONO % 7.5 % (2.0-8.0); NEUTROPHILS # 5.3 10^3/uL (1.5-8.5); NEUTROPHILS % 61.9 % (36.0-66.0); PLATELET COUNT, AUTOMATED 246 10^3/uL (150-450); RED BLOOD COUNT 4.47 10^6/uL (4.00-5.40); WHITE BLOOD COUNT 8.6 10^3/uL (4.0-10.0)
[2023-06-17 11:08] LABS: ALBUMIN 3.7 G/DL (3.2-5.2); ALKALINE PHOSPHATASE 93 U/L (46-116); ALT/SGPT 20 U/L (7.0-40); AST/SGOT 18 U/L (<34); BILIRUBIN,TOTAL 0.6 MG/DL (0.3-1.2); BLOOD UREA NITROGEN 22 MG/DL (9-23); CALCIUM LEVEL 9.3 MG/DL (8.3-10.6); CARBON DIOXIDE LEVEL 27 MMOL/L (20-31); CHLORIDE LEVEL 107 MMOL/L (98-107); CHOLESTEROL LEVEL 164 MG/DL (<200); CHOLESTEROL RISK RATIO 2.89 (<5); CREATININE FOR GFR 0.97 MG/DL (0.55-1.30); GLOMERULAR FILTRATION RATE > 60.0 (>45); GLUCOSE, FASTING 95 MG/DL (74-106); HDL CHOLESTEROL 56.7 MG/DL (>40); IRON (FE) 80 UG/DL (50-170); LDL CHOLESTEROL 88.7 MG/DL (<100); NON-HDL-C 107.3 MG/DL; POTASSIUM SERUM 4.3 MMOL/L (3.5-5.1); SODIUM LEVEL 143 MMOL/L (136-145); TOTAL IRON BINDING CAPACITY 286 UG/DL (250-425); TOTAL PROTEIN 6.8 G/DL (5.7-8.2); TRIGLYCERIDES LEVEL 93 MG/DL (<150)
[2023-06-17 11:14] LABS: FOLATE 17.3 NG/ML (>5.4); THYROID STIMULATING HORMONE 3.661 uIU/ML (0.55-4.78); VITAMIN B12 LEVEL 505 PG/ML (211-911)
[2023-06-17 11:15] LABS: FERRITIN 247.4 NG/ML (7.3-270.7); FREE T4 1.09 NG/DL (0.89-1.76); TOTAL 25(OH) VITAMIN D 42.3 NG/ML (20.0-100.0)
== END ==
LOC: M RAD 09:39
PROVIDERS: ATTEND Physician Assistant
DX: Z00.00 Encounter for general adult medical examination without abnormal findings (principal); D50.9 Iron deficiency anemia, unspecified; E07.9 Disorder of thyroid, unspecified; E78.00 Pure hypercholesterolemia, unspecified

== ENCOUNTER → 2023-06-19 | Outpatient (REF) | payer MEDICARE, MEDICAID | LOC: M SFHCLERA 11:52 | PROVIDERS: ATTEND Physician Assistant | DX: R20.2 Paresthesia of skin (principal) ==

== ENCOUNTER → 2023-08-26 | Outpatient (CLI) | payer MEDICARE, MEDICAID ==
[2023-08-26 09:40] LABS: HEMATOCRIT 39.4 % (36.0-47.0); HEMOGLOBIN 12.9 g/dl (12.0-15.5); MEAN CORPUSCULAR HGB CONC 32.7 g/dl (32.0-36.5); MEAN CORPUSCULAR VOLUME 94.7 fl (80.0-96.0); PLATELET COUNT, AUTOMATED 240 10^3/uL (150-450); RED BLOOD COUNT 4.16 10^6/uL (4.00-5.40); WHITE BLOOD COUNT 7.6 10^3/uL (4.0-10.0)
[2023-08-26 09:52] LABS: INR 0.98; PROTHROMBIN TIME 12.7 SECONDS (12.5-14.5)
[2023-08-26 09:57] LABS: ERYTHROCYTE SEDIMENTATION RATE 21 mm/hr (0-30)
[2023-08-26 10:05] LABS: ALBUMIN 3.7 G/DL (3.2-5.2); BILIRUBIN,TOTAL 0.7 MG/DL (0.3-1.2); CALCIUM LEVEL 9.2 MG/DL (8.3-10.6); CREATININE FOR GFR 1.02 MG/DL (0.55-1.30); GLOMERULAR FILTRATION RATE 57.5 (>45); POTASSIUM SERUM 4.4 MMOL/L (3.5-5.1); TOTAL PROTEIN 6.4 G/DL (5.7-8.2)
== END ==
LOC: M RAD 08:38
PROVIDERS: ATTEND Orthopaedic Surgery
DX: Z01.818 Encounter for other preprocedural examination (principal); M17.0 Bilateral primary osteoarthritis of knee; J90 Pleural effusion, not elsewhere classified

== ENCOUNTER → 2023-09-16 | Outpatient (REF) ==
[2023-09-16 12:08] LABS: HEMATOCRIT 32.9 % (36.0-47.0); HEMOGLOBIN 10.7 g/dl (12.0-15.5); MEAN CORPUSCULAR HEMOGLOBIN 30.8 pg (27.0-33.0); MEAN CORPUSCULAR HGB CONC 32.5 g/dl (32.0-36.5); MEAN CORPUSCULAR VOLUME 94.8 fl (80.0-96.0); PLATELET COUNT, AUTOMATED 281 10^3/uL (150-450); RED BLOOD COUNT 3.47 10^6/uL (4.00-5.40); WHITE BLOOD COUNT 7.6 10^3/uL (4.0-10.0)
[2023-09-16 12:41] LABS: CALCIUM LEVEL 8.4 MG/DL (8.3-10.6); CREATININE FOR GFR 1.18 MG/DL (0.55-1.30); GLOMERULAR FILTRATION RATE 48.6 (>45); POTASSIUM SERUM 3.9 MMOL/L (3.5-5.1)
== END ==
PROVIDERS: ATTEND Physician Assistant
DX: M25.561 Pain in right knee (principal)

== ENCOUNTER → 2023-09-23 | Outpatient (REF) ==
[2023-09-23 10:39] LABS: HEMOGLOBIN 11.5 g/dl (12.0-15.5); MEAN CORPUSCULAR HEMOGLOBIN 30.3 pg (27.0-33.0); MEAN CORPUSCULAR HGB CONC 31.9 g/dl (32.0-36.5); PLATELET COUNT, AUTOMATED 344 10^3/uL (150-450); RED BLOOD COUNT 3.79 10^6/uL (4.00-5.40); WHITE BLOOD COUNT 7.6 10^3/uL (4.0-10.0)
[2023-09-23 11:10] LABS: CALCIUM LEVEL 8.9 MG/DL (8.3-10.6); CREATININE FOR GFR 1.08 MG/DL (0.55-1.30); GLOMERULAR FILTRATION RATE 53.9 (>45); POTASSIUM SERUM 4.2 MMOL/L (3.5-5.1)
== END ==
PROVIDERS: ATTEND Physician Assistant
DX: Z51.0 Encounter for antineoplastic radiation therapy (principal); Z96.651 Presence of right artificial knee joint

== ENCOUNTER → 2023-10-14 | Outpatient (REF) | PROVIDERS: ATTEND Internal Medicine | DX: Z47.1 Aftercare following joint replacement surgery (principal); Z96.651 Presence of right artificial knee joint; Z53.8 Procedure and treatment not carried out for other reasons ==

== ENCOUNTER → 2023-12-08 | Outpatient (CLI) | payer MEDICARE, OTHER ==
[2023-12-08 11:34] LABS: BASO # 0.1 10^3/uL (0.0-0.2); BASO % 0.8 % (0.0-1.0); EOS # 0.3 10^3/uL (0.0-0.5); HEMATOCRIT 39.2 % (36.0-47.0); HEMOGLOBIN 12.5 g/dl (12.0-15.5); LYMPH % 22.1 % (24.0-44.0); MEAN CORPUSCULAR HEMOGLOBIN 30.2 pg (27.0-33.0); MEAN CORPUSCULAR HGB CONC 31.9 g/dl (32.0-36.5); MEAN CORPUSCULAR VOLUME 94.7 fl (80.0-96.0); MONO # 0.6 10^3/uL (0.0-0.8); MONO % 6.7 % (2.0-8.0); NEUTROPHILS % 67.2 % (36.0-66.0); PLATELET COUNT, AUTOMATED 211 10^3/uL (150-450); RED BLOOD COUNT 4.14 10^6/uL (4.00-5.40)
[2023-12-08 12:06] LABS: ALBUMIN 3.2 G/DL (3.2-5.2); ALKALINE PHOSPHATASE 94 U/L (46-116); ALT/SGPT 20 U/L (7.0-40); AST/SGOT 17 U/L (<34); BILIRUBIN,TOTAL 0.4 MG/DL (0.3-1.2); BLOOD UREA NITROGEN 27 MG/DL (9-23); CALCIUM LEVEL 9.1 MG/DL (8.3-10.6); CARBON DIOXIDE LEVEL 29 MMOL/L (20-31); CHLORIDE LEVEL 109 MMOL/L (98-107); CREATININE FOR GFR 0.87 MG/DL (0.55-1.30); GLOMERULAR FILTRATION RATE > 60.0 (>45); GLUCOSE, FASTING 96 MG/DL (74-106); POTASSIUM SERUM 4.3 MMOL/L (3.5-5.1); SODIUM LEVEL 143 MMOL/L (136-145); TOTAL PROTEIN 6.1 G/DL (5.7-8.2)
[2023-12-08 12:07] LABS: FOLATE 13.3 NG/ML (>5.4); THYROID STIMULATING HORMONE 3.882 uIU/ML (0.55-4.78); VITAMIN B12 LEVEL 573 PG/ML (211-911)
== END ==
LOC: M LAB 10:49
PROVIDERS: ATTEND Physician Assistant
DX: I10 Essential (primary) hypertension (principal)

== ENCOUNTER → 2023-12-14 | Outpatient (CLI) | payer MEDICARE, OTHER ==
[~2023-12-14] MED LIST changes: +DOXY-323 PO; -DOXY-443 PO
[2023-12-15 23:11] LABS: ANA (HEP2) Negative (.)
== END ==
LOC: M LAB 10:56
PROVIDERS: ATTEND Internal Medicine
DX: Z79.899 Other long term (current) drug therapy (principal); L25.9 Unspecified contact dermatitis, unspecified cause

== ENCOUNTER → 2024-04-14 | Outpatient (REF) | payer MEDICARE, MEDICAID ==
[~2024-04-14] MED LIST changes: +METH85CR6 TOP; -MUSCCRE9 TOP
[2024-04-14 14:01] LABS: APPEARANCE, URINE CLEAR (CLEAR); BACTERIA, URINE AUTO 1+ (NEGATIVE); BILIRUBIN, URINE AUTO NEGATIVE (NEGATIVE); BLOOD, URINE BLOOD NEGATIVE (NEGATIVE); COLOR, URINE YELLOW (YELLOW); GLUCOSE, URINE (UA) AUTO NEGATIVE (NEGATIVE); KETONE, URINE AUTO NEGATIVE (NEGATIVE); LEUKOCYTE ESTERASE, URINE AUTO NEGATIVE (NEGATIVE); MUCUS, URINE SMALL (NEGATIVE); NITRITE, URINE AUTO NEGATIVE (NEGATIVE); PROTEIN, URINE AUTO NEGATIVE (NEGATIVE); RBC, URINE AUTO 1 /HPF (0-3); SQUAMOUS EPITHELIAL CELL UR AU 3 /HPF (0-6); UROBILINOGEN, URINE AUTO 0.2 mg/dL (0.0-2.0); WBC, URINE AUTO 1 /HPF (0-3)
[2024-04-14 14:03] LABS: BASO % 0.8 % (0.0-1.0); EOS # 0.2 10^3/uL (0.0-0.5); EOS % 3.5 % (0.0-3.0); HEMATOCRIT 33.4 % (36.0-47.0); HEMOGLOBIN 10.2 g/dl (12.0-15.5); LYMPH # 1.3 10^3/uL (1.5-5.0); LYMPH % 26.2 % (24.0-44.0); MEAN CORPUSCULAR HEMOGLOBIN 28.7 pg (27.0-33.0); MEAN CORPUSCULAR HGB CONC 30.5 g/dl (32.0-36.5); MEAN CORPUSCULAR VOLUME 93.8 fl (80.0-96.0); MONO # 0.4 10^3/uL (0.0-0.8); MONO % 7.2 % (2.0-8.0); NEUTROPHILS % 61.9 % (36.0-66.0); PLATELET COUNT, AUTOMATED 257 10^3/uL (150-450); RED BLOOD COUNT 3.56 10^6/uL (4.00-5.40); WHITE BLOOD COUNT 4.9 10^3/uL (4.0-10.0)
[2024-04-14 14:20] LABS: ALBUMIN 2.7 G/DL (3.2-5.2); ALKALINE PHOSPHATASE 86 U/L (46-116); ALT/SGPT 28 U/L (7.0-40); AST/SGOT 20 U/L (<34); BILIRUBIN,TOTAL 0.4 MG/DL (0.3-1.2); BLOOD UREA NITROGEN 18 MG/DL (9-23); CARBON DIOXIDE LEVEL 27 MMOL/L (20-31); CHLORIDE LEVEL 109 MMOL/L (98-107); CREATININE FOR GFR 0.87 MG/DL (0.55-1.30); GLOMERULAR FILTRATION RATE > 60.0 (>45); GLUCOSE, FASTING 74 MG/DL (74-106); POTASSIUM SERUM 4.2 MMOL/L (3.5-5.1); SODIUM LEVEL 142 MMOL/L (136-145)
== END ==
LOC: M LAB REF 12:41
PROVIDERS: ATTEND Family Medicine
DX: I48.20 Chronic atrial fibrillation, unspecified (principal); Z79.899 Other long term (current) drug therapy

== ENCOUNTER → 2024-04-19 | Outpatient (REF) | payer MEDICARE, MEDICAID | LOC: M LAB REF 15:19 | PROVIDERS: ATTEND Family Medicine | DX: M32.9 Systemic lupus erythematosus, unspecified (principal) ==

== ENCOUNTER → 2025-03-07 | Outpatient (CLI) | payer MEDICAID, MEDICARE ==
[~2025-03-07] MED LIST changes: -BIOT1000 PO; +BIOT10002 PO; -BRIM1OPD OU; +BRIM5DRO25 OU; -DOXY-323 PO; +DOXY-441 PO
== END ==
LOC: M WHC 07:07
PROVIDERS: ATTEND Pediatrics
DX: Z12.31 Encounter for screening mammogram for malignant neoplasm of breast (principal); M81.0 Age-related osteoporosis without current pathological fracture